=== PATIENT | male | born 1945 | race Caucasian/White ===

== ENCOUNTER 2017-07-06 16:41 | Inpatient (IN) | payer MEDICARE ==
[~2017-07-06 16:41] MED LIST: GADODIAMIDE PF 287 MG/ML 20 ML VIAL (for RAD MRI) IV PUSH ONE
[2017-07-06 16:42] VITALS: BP 122/78; PULSE 75; RESP 16; TEMP 97.8; O2SAT 100
--- NOTE | 2017-07-06 18:13 | RADRPT ---
EXAM DATE/TIME: 07/06/2017 17:57 [facility] COMPARISON: No previous studies available for comparison. INDICATIONS : Altered mental status. RADIATION DOSE: 40.12 CTDIvol (mGy) MEDICAL HISTORY : None SURGICAL HISTORY : None. ENCOUNTER: Initial ACUITY: 1 day PAIN SCALE: 0/10 LOCATION: Bilateral head TECHNIQUE: Multiple contiguous axial images were obtained of the head. Using automated exposure control and adj ustment of the mA and/or kV according to patient size, radiation dose was kept as low as reasonably a chievable to obtain optimal diagnostic quality images. DICOM format image data is available electro nically for review and comparison. FINDINGS: CEREBRUM: Mild diffuse cerebral volume loss. The ventricles are minimally more prominent than expected for degr ee of atrophy.. No evidence of midline shift, mass lesion, hemorrhage or acute infarction. No extra -axial fluid collections are seen. POSTERIOR FOSSA: The cerebellum and brainstem are intact. The 4th ventricle is midline. The cerebellopontine angle i s unremarkable. EXTRACRANIAL: The visualized portion of the orbits is intact. Mild mucoperiosteal thickening in the left maxillary sinus. SKULL: The calvaria is intact. No evidence of skull fracture. CONCLUSION: 1. Senescent changes with minimally prominent ventricles. Recommend clinical correlation for normal p ressure hydrocephalus. Ajay Gr MD on July 06, 2017 at 18:10 Board Certified Radiologist. This report was verified electronically.
[2017-07-06 18:32] LABS: AUTOMATED NEUTROPHIL # 3.1 TH/MM3 (1.8-7.7); BASOPHIL # 0.1 TH/MM3 (0-0.2); BASOPHIL % 0.9 % (0.0-2.0); EOSINOPHIL # 0.1 TH/MM3 (0-0.4); EOSINOPHIL % 1.4 % (0.0-4.0); HEMATOCRIT 37.5 % (39.0-51.0); HEMOGLOBIN 12.9 GM/DL (13.0-17.0); LYMPH % 31.1 % (9.0-44.0); LYMPHOCYTE # 1.7 TH/MM3 (1.0-4.8); MEAN CELL VOLUME 96.3 FL (80.0-100.0); MEAN CORPUSCULAR HGB CONC 34.3 % (32.0-36.0); MEAN PLATELET VOLUME 7.4 FL (7.0-11.0); MONO % 11.3 % (0.0-8.0); MONOCYTE # 0.6 TH/MM3 (0-0.9); NEUT % 55.3 % (16.0-70.0); PLATELET COUNT 195 TH/MM3 (150-450); RED CELL DISTRIBUTION WIDTH 14.6 % (11.6-17.2); WHITE BLOOD COUNT 5.6 TH/MM3 (4.0-11.0)
[2017-07-06 18:35] LABS: AMORPHOUS SEDIMENT, URINE RARE; BILIRUBIN, URINE NEG (NEG); BLOOD, URINE NEG (NEG); GLUCOSE,URINE NEG (NEG); HYALINE CAST, URINE 3 /lpf (RARE); KETONE, URINE TRACE mg/dL (NEG); MUCUS URINE FEW /lpf (OCC); NITRITE,URINE NEG (NEG); URINE COLOR YELLOW (YELLW/STRAW); URINE LEUKOCYTE ESTERASE NEG (NEG)
[2017-07-06 18:51] LABS: BICARBONATE 28.4 MEQ/L (21.0-32.0); CALCIUM 9.3 MG/DL (8.5-10.1); CREATININE 1.12 MG/DL (0.60-1.30)
[2017-07-06 19:26] VITALS: O2SAT 100
[2017-07-06 19:27] VITALS: BP 121/72; PULSE 68; RESP 16
--- NOTE | 2017-07-06 19:33 | PD ---
HPI Chief Complaint: Altered Mental Status Time Seen by Provider: 18:43 Travel History International Travel<30 days: No Contact w/Intl Traveler<30days: No Traveled to known affect area: No History of Present Illness HPI 72-year-old male presents to the ED for evaluation of worsening confusion, forgetfulness, shuffling gait, urinary incontinence. Patient has a neighbor at bedside he states that his speech was garbled when they attempted to talk on the phone today. She also states that she noticed increased swelling in his lower legs and that he's been having urinary difficulties, with urinary incontinence before arrival. On presentation the patient is pleasantly confused. He denies headache, dizziness, vision changes, chest pain, palpitations, shortness of breath, abdominal pain, nausea, vomiting, dysuria. He endorses chronic swelling in the lower extremities. He states that he buys his medications from [facility] and is unsure what he takes. He thinks he takes bupropion but is otherwise unsure. PFSH Past Medical History Medical other: Yes (tooth infection) Social History Alcohol Use: No Tobacco Use: No Allergies-Medications (Allergen,Severity, Reaction): Coded Allergies: No Known Allergies (Unverified , 07/06/17) Reported Meds & Prescriptions Reported Meds & Active Scripts Active Active Prescriptions or Reported Medications Unobtainable Review of Systems Except as stated in HPI: all other systems reviewed are Neg Physical Exam Narrative GENERAL: Well-nourished, well-developed pleasantly confused white male in no acute distress. PSYCHIATRIC: No delusional thought processes. No hallucinations. Calm, cooperative. SKIN: Focused skin assessment warm/dry. Venous stasis dermatitis bilateral lower extremities. HEAD: Normocephalic. Atraumatic. EYES: No scleral icterus. No injection or drainage. PERRLA. EOMI. NECK: Supple, trachea midline. No JVD or lymphadenopathy. CARDIOVASCULAR: Regular rate and rhythm without murmurs, gallops, or rubs. RESPIRATORY: Breath sounds clear and equal bilaterally. No accessory muscle use. GASTROINTESTINAL: Abdomen soft, non-tender, nondistended. Active bowel sounds. MUSCULOSKELETAL: No cyanosis, or edema. NEUROLOGICAL: Awake and alert. Mild resting tremor. Cranial nerves II through XII intact. Motor and sensory grossly within normal limits. Five out of 5 muscle strength in all muscle groups. Normal speech. BACK: Nontender without obvious deformity. No CVA tenderness. Data Data Last Documented VS Vital Signs Date Time Temp Pulse Resp B/P (MAP) Pulse Ox O2 Delivery O2 Flow Rate FiO2 07/06/17 19:27 68 16 121/72 (88) 07/06/17 19:26 100 Room Air 07/06/17 16:42 97.8 Orders Orders Complete Blood Count With Diff (07/06/17 16:52) Basic Metabolic Panel (Bmp) (07/06/17 16:52) Urinalysis - C+S If Indicated (07/06/17 16:52) Ct Brain W/O Iv Contrast(Rout) (07/06/17 ) Electrocardiogram (07/06/17 ) Troponin I (07/06/17 19:08) Iv Access Insert/Monitor (07/06/17 19:08) Ecg Monitoring (07/06/17 19:08) Oximetry (07/06/17 19:08) B-Type Natriuretic Peptide (07/06/17 19:08) Admit Order (Ed Use Only) (07/06/17 21:08) Labs Laboratory Tests Test 07/06/17 17:17 07/06/17 19:20 White Blood Count 5.6 TH/MM3 Red Blood Count 3.90 MIL/MM3 Hemoglobin 12.9 GM/DL Hematocrit 37.5 % Mean Corpuscular Volume 96.3 FL Mean Corpuscular Hemoglobin 33.0 PG Mean Corpuscular Hemoglobin Concent 34.3 % Red Cell Distribution Width 14.6 % Platelet Count 195 TH/MM3 Mean Platelet Volume 7.4 FL Neutrophils (%) (Auto) 55.3 % Lymphocytes (%) (Auto) 31.1 % Monocytes (%) (Auto) 11.3 % Eosinophils (%) (Auto) 1.4 % Basophils (%) (Auto) 0.9 % Neutrophils # (Auto) 3.1 TH/MM3 Lymphocytes # (Auto) 1.7 TH/MM3 Monocytes # (Auto) 0.6 TH/MM3 Eosinophils # (Auto) 0.1 TH/MM3 Basophils # (Auto) 0.1 TH/MM3 CBC Comment DIFF FINAL Differential Comment Urine Color YELLOW Urine Turbidity CLEAR Urine pH 6.0 Urine Specific [place] 1.018 Urine Protein NEG mg/dL Urine Glucose (UA) NEG mg/dL Urine Ketones TRACE mg/dL Urine Occult Blood NEG Urine Nitrite NEG Urine Bilirubin NEG Urine Urobilinogen LESS THAN 2.0 MG/DL Urine Leukocyte Esterase NEG Urine RBC 1 /hpf Urine WBC LESS THAN 1 /hpf Urine Amorphous Sediment RARE Urine Hyaline Casts 3 /lpf Urine Mucus FEW /lpf Microscopic Urinalysis Comment CULT NOT INDICATED Blood Urea Nitrogen 34 MG/DL Creatinine 1.12 MG/DL Random Glucose 77 MG/DL Calcium Level 9.3 MG/DL Sodium Level 141 MEQ/L Potassium Level 3.8 MEQ/L Chloride Level 106 MEQ/L Carbon Dioxide Level 28.4 MEQ/L Anion Gap 7 MEQ/L Estimat Glomerular Filtration Rate 64 ML/MIN B-Type Natriuretic Peptide 32 PG/ML Troponin I LESS THAN 0.02 NG/ML MDM Medical Decision Making Medical Screen Exam Complete: Yes Emergency Medical Condition: Yes Differential Diagnosis dementia versus UTI versus CVA versus Parkinsons versus other Narrative Course 72-year-old male presents to the ED for evaluation of worsening confusion, forgetfulness, shuffling gait, urinary incontinence. Patient has a neighbor at bedside he states that his speech was garbled when they attempted to talk on the phone today. She also states that she noticed increased swelling in his lower legs. Vitals reviewed. On presentation the patient is pleasantly confused. No focal neuro deficit, resting tremor noted. Patient is very hesitant in his gait. He states that he buys his medications from [facility] and is unsure what he takes. EKG rate 67, sinus rhythm. WV interval 161, QRS 94, QTC 421. Normal axis. No acute ST changes. Reviewed by Dr. Alonzo. Troponin negative 1. BNP 32 CBC: 10 CBC 5.6, hemoglobin 12.9. CMP: BUN 34, creatinine 1.12, GFR 64. UA: No culture indicated. CT head: Senescent changes, minimally prominent ventricles. Recommend clinical correlation for normal pressure hydrocephalus per radiology read. Discussed the results of the workup with the patient and his friend at bedside. They are agreeable to admission. I discussed the patient with Dr. Cade who agrees to accept the patient to the medicine service to rule out normal pressure hydrocephalus. Neuro consult placed. Please see medicine notes for disposition. Scripts Unable to Obtain Active Prescriptions or Reported Meds Munira Prater Jul 06, 2017 19:33
[2017-07-06] MEDS ORDERED: SODIUM CHLORIDE 0.9% FLUSH 10 ML FLUSH IV FLUSH PRN (22:00)
[2017-07-06 22:39] VITALS: BP 131/72; PULSE 67; RESP 16; TEMP 97.3; O2SAT 100
--- NOTE | 2017-07-07 00:43 | HHI.HP ---
[facility] Ahmet Doe MD Admission Diagnosis neuro symptoms r/o normal pressur hydrocephalus Diagnoses: Travel History International Travel<30 Days: No Contact w/Intl Traveler <30 Da: No Traveled to Known Affected Are: No History of Present Illness 72-year-old gentleman with unknown past medical history presents to the emergency department for evaluation of ulcerative mental status and more frequent falls. The patient's neighbor reports that patient has been suffering from worsening confusion and forgetfulness. She also states he has a shuffling gait with urinary incontinence. The neighbor reports that the patient has had garbled speech today. During her interview, the patient does not know why he is in the emergency department. He is pleasantly confused. He knows he is in the state [facility] but does not know the city. He does not know the date or year. He does not know what medical problems he has but he can tell me that he takes multiple medications. The patient does report that he fell twice last night. Patient denies headache. He denies fever/chills. No chest pain or shortness of breath. No nausea/vomiting/diarrhea. Review of Systems ROS Limitations: Clinical Condition Except as stated in HPI: all other systems reviewed are Neg Past Family Social History Past Medical History Unable to obtain Past Surgical History Unable to obtain Reported Medications Reported Meds & Active Scripts Active Active Prescriptions or Reported Medications Unobtainable Allergies: Coded Allergies: No Known Allergies (Unverified , 07/06/17) Family History Unable to obtain Social History Patient denies alcohol, tobacco and illicit drugs Physical Exam Vital Signs Vital Signs Date Time Temp Pulse Resp B/P (MAP) Pulse Ox O2 Delivery O2 Flow Rate FiO2 07/06/17 22:39 97.3 67 16 131/72 (91) 100 07/06/17 22:22 07/06/17 19:27 68 16 121/72 (88) 07/06/17 19:26 100 Room Air 07/06/17 19:08 16 Room Air 07/06/17 16:42 97.8 75 16 122/78 (93) 100 Physical Exam GENERAL: male lying in bed SKIN: No rashes, ecchymoses or lesions. Cool and dry. HEAD: Atraumatic. Normocephalic. No temporal or scalp tenderness. EYES: Pupils equal round and reactive. Extraocular motions intact. No scleral icterus. No injection or drainage. ENT: Nose without bleeding, purulent drainage or septal hematoma. Throat without erythema, tonsillar hypertrophy or exudate. Uvula midline. Airway patent. NECK: Trachea midline. No JVD or lymphadenopathy. Supple, nontender, no meningeal signs. CARDIOVASCULAR: Regular rate and rhythm without murmurs, gallops, or rubs. RESPIRATORY: Clear to auscultation. Breath sounds equal bilaterally. No wheezes , rales, or rhonchi. GASTROINTESTINAL: Abdomen soft, non-tender, nondistended. No hepato-splenomegaly , or palpable masses. No guarding. MUSCULOSKELETAL: Extremities without clubbing, cyanosis, or edema. No joint tenderness, effusion, or edema noted. No calf tenderness. Negative Homans sign bilaterally. NEUROLOGICAL: Awake and alert. Cranial nerves II through XII intact. Motor and sensory grossly within normal limits. Five out of 5 muscle strength in all muscle groups. Normal speech. Confused. Oriented only to state. He does not know city, date, time. Laboratory Laboratory Tests Test 07/06/17 17:17 07/06/17 19:20 White Blood Count 5.6 Red Blood Count 3.90 Hemoglobin 12.9 Hematocrit 37.5 Mean Corpuscular Volume 96.3 Mean Corpuscular Hemoglobin 33.0 Mean Corpuscular Hemoglobin Concent 34.3 Red Cell Distribution Width 14.6 Platelet Count 195 Mean Platelet Volume 7.4 Neutrophils (%) (Auto) 55.3 Lymphocytes (%) (Auto) 31.1 Monocytes (%) (Auto) 11.3 Eosinophils (%) (Auto) 1.4 Basophils (%) (Auto) 0.9 Neutrophils # (Auto) 3.1 Lymphocytes # (Auto) 1.7 Monocytes # (Auto) 0.6 Eosinophils # (Auto) 0.1 Basophils # (Auto) 0.1 CBC Comment DIFF FINAL Differential Comment Urine Color YELLOW Urine Turbidity CLEAR Urine pH 6.0 Urine Specific [place] 1.018 Urine Protein NEG Urine Glucose (UA) NEG Urine Ketones TRACE Urine Occult Blood NEG Urine Nitrite NEG Urine Bilirubin NEG Urine Urobilinogen LESS THAN 2.0 Urine Leukocyte Esterase NEG Urine RBC 1 Urine WBC LESS THAN 1 Urine Amorphous Sediment RARE Urine Hyaline Casts 3 Urine Mucus FEW Microscopic Urinalysis Comment CULT NOT INDICATED Blood Urea Nitrogen 34 Creatinine 1.12 Random Glucose 77 Calcium Level 9.3 Sodium Level 141 Potassium Level 3.8 Chloride Level 106 Carbon Dioxide Level 28.4 Anion Gap 7 Estimat Glomerular Filtration Rate 64 B-Type Natriuretic Peptide 32 Ethyl Alcohol Level LESS THAN 3 Troponin I LESS THAN 0.02 Result Diagram: 07/06/17171607/06/171716 Caprini VTE Risk Assessment Caprini VTE Risk Assessment: Mod/High Risk (score >= 2) Caprini Risk Assessment Model Point Value = 1 Point Value = 2 Point Value = 3 Point Value = 5 Age 41-60 Minor surgery BMI > 25 kg/m2 Swollen legs Varicose veins or History of unexplained or recurrent spontaneous Oral contraceptives or hormone replacement Sepsis (< 1 month) Serious lung disease, including pneumonia (< 1 month) Abnormal pulmonary function Acute myocardial infarction Congestive heart failure (< 1 month) History of inflammatory bowel disease Medical patient at bed rest Age 61-74 Arthroscopic surgery Major open surgery (> 45 min) Laparoscopic surgery (> 45 min) Malignancy Confined to bed (> 72 hours) Immobilizing plaster cast Central venous access Age >= 75 History of VTE Family history of VTE Factor V Leiden Prothrombin [id number] Lupus anticoagulant Anticardiolipin antibodies Elevated serum homocysteine Heparin-induced thrombocytopenia Other congenital or acquired thrombophilia Stroke (< 1 month) Elective arthroplasty Hip, pelvis, or leg fracture Acute spinal cord injury (< 1 month) Prophylaxis Regimen Total Risk Factor Score Risk Level Prophylaxis Regimen 0-1 Low Early ambulation 2 Moderate Order ONE of the following: *Sequential Compression Device (SCD) *Heparin 5000 units SQ BID 3-4 Higher Order ONE of the following medications: *Heparin 5000 units SQ TID *Enoxaparin/Lovenox 40 mg SQ daily (WT < 150 kg, CrCl > 30 mL/min) *Enoxaparin/Lovenox 30 mg SQ daily (WT < 150 kg, CrCl > 10-29 mL/min) *Enoxaparin/Lovenox 30 mg SQ BID (WT < 150 kg, CrCl > 30 mL/min) AND/OR *Sequential Compression Device (SCD) 5 or more Highest Order ONE of the following medications: *Heparin 5000 units SQ TID (Preferred with Epidurals) *Enoxaparin/Lovenox 40 mg SQ daily (WT < 150 kg, CrCl > 30 mL/min) *Enoxaparin/Lovenox 30 mg SQ daily (WT < 150 kg, CrCl > 10-29 mL/min) *Enoxaparin/Lovenox 30 mg SQ BID (WT < 150 kg, CrCl > 30 mL/min) AND *Sequential Compression Device (SCD) Assessment and Plan Assessment and Plan Assessment/plan: 1. Altered mental status/concern for hydrocephalus Patient with urinary incontinence, shuffling gait, frequent falls and confusion CT of the head significant for minimally prominent ventricles Concern for normal pressure hydrocephalus Neurology consulted, appreciate assistance 2. Multiple medical comorbidities Records review did not elicit information Patient's medical history will need to be obtained FEN Nothing by mouth Electrolytes: Monitor and replete when necessary NS at 84 cc/hour Halting pharmacologic anticoagulation for possible procedure Amelie Cade MD Jul 07, 2017 00:43
[2017-07-07] MEDS: SODIUM CHLOR 0.9% 1000 ML INJ 1,000 ML IV SCH ×3 (01:19→16:01)
[2017-07-07 06:38] VITALS: BP 128/61; PULSE 63; RESP 18; TEMP 98; O2SAT 100
[2017-07-07 07:48] LABS: AUTOMATED NEUTROPHIL # 2.4 TH/MM3 (1.8-7.7); BASOPHIL % 0.9 % (0.0-2.0); EOSINOPHIL # 0.1 TH/MM3 (0-0.4); EOSINOPHIL % 1.5 % (0.0-4.0); HEMATOCRIT 35.9 % (39.0-51.0); HEMOGLOBIN 12.3 GM/DL (13.0-17.0); LYMPH % 37.6 % (9.0-44.0); LYMPHOCYTE # 1.8 TH/MM3 (1.0-4.8); MEAN CORPUSCULAR HEMOGLOBIN 32.9 PG (27.0-34.0); MEAN CORPUSCULAR HGB CONC 34.2 % (32.0-36.0); MEAN PLATELET VOLUME 7.4 FL (7.0-11.0); MONO % 8.6 % (0.0-8.0); MONOCYTE # 0.4 TH/MM3 (0-0.9); NEUT % 51.4 % (16.0-70.0); PLATELET COUNT 174 TH/MM3 (150-450); RED BLOOD COUNT 3.75 MIL/MM3 (4.50-5.90); RED CELL DISTRIBUTION WIDTH 14.3 % (11.6-17.2); WHITE BLOOD COUNT 4.7 TH/MM3 (4.0-11.0)
[2017-07-07 08:25] LABS: ALBUMIN 3.3 GM/DL (3.4-5.0); ALKALINE PHOSPHATASE 68 U/L (45-117); ALT (GPT) 17 U/L (12-78); AST (GOT) 22 U/L (15-37); BICARBONATE 29.8 MEQ/L (21.0-32.0); BLOOD UREA NITROGEN 31 MG/DL (7-18); CALCIUM 8.5 MG/DL (8.5-10.1); CHLORIDE 108 MEQ/L (98-107); CREATININE 0.96 MG/DL (0.60-1.30); GLOMERULAR FILTRATION RATE 77 ML/MIN (>89); GLUCOSE,RANDOM 77 MG/DL (74-106); SODIUM (NA) 142 MEQ/L (136-145); TOTAL BILIRUBIN ADULT 0.8 MG/DL (0.2-1.0); TOTAL PROTEIN 6.4 GM/DL (6.4-8.2)
[2017-07-07 08:59] VITALS: BP 105/60; PULSE 64; RESP 18; TEMP 97.6; O2SAT 99
[2017-07-07] MEDS: SODIUM CHLORIDE 0.9% FLUSH 10 ML FLUSH IV FLUSH SCH ×2 (09:00→21:00)
[2017-07-07] MEDS ORDERED: AMLO2.5T PO (10:03)
[2017-07-07] MEDS ORDERED: SERO200T PO (10:03)
--- NOTE | 2017-07-07 11:12 | PD.CONS ---
History of Present Illness Service Neurology Consult Requested By Medicine Reason for Consult R/O [facility] Primary Care Physician Ahmet Doe MD History of Present Illness 72 yo male admitted to the hospital for worsening gait ataxia, confusion, and urinary incontinence. Pt is pleasantly confused and cannot give meaningful history. He denies any headache or neck stiffness currently. Knows that he gets medicine from [facility] but cannot recall what meds or for what reason. According to the chart the patient lives alone and friends have noted a decline in balance and mobility, cognitive impairment, and urinary incontinence. CT head suggestive of minimally prominent ventricles, otherwise NAICP. After my initial evaluation, I was called back to the patient's room to speak with the patient's neighbor. She does note that he has had some mild but progressive cognitive decline over the past 6 months as well as mild and progressive gait ataxia. She states that yesterday he was notably more confused and unable to walk, therefore he was brought into the hospital for evaluation. She is uncertain of his full medical history, though she notes that he has a broken tooth which was scheduled to be removed soon. He was started on amoxicillin and a narcotic pain medication. She states that he has not been taking much of the pain medication. She noted upon seeing him yesterday that the patient had lost control of his bladder before he was brought into the hospital. Review of Systems Constitutional: Negative except HPI Eye: Negative Except HPI ENMT: Negative except HPI Respiratory: Negative except HPI Cardiovascular: Negative except HPI Gastrointestinal: Negative except HPI Jonathan/Lymph: Negative except HPI Musculoskeletal: Negative except HPI Neurologic: Negative except HPI Psychiatric: Negative except HPI All other ROS: ROS reviewed as documented in chart Past Family Social History Allergies: Coded Allergies: No Known Allergies (Unverified , 07/06/17) Past Medical History Unobtainable due to confused patient Past Surgical History Unobtainable due to confused patient Reported Medications Unobtainable due to confused patient Active Ordered Medications Current Medications Medications (Trade) Dose Ordered Sig/Crystal Route Start Time Stop Time Status Last Admin (NS Flush) 2 ml UNSCH PRN IV FLUSH 07/06/17 22:00 (NS Flush) 2 ml BID IV FLUSH 07/07/17 09:00 Sodium Chloride 1,000 ml @ 84 mls/hr [id number] IV 07/07/17 00:45 07/07/17 01:22 Family History Unobtainable due to confused patient Social History Unobtainable due to confused patient, does note that he lives alone in [place] Exam I&O / VS 07/07/17 07/07/17 07/08/17 14:59 22:59 06:59 Output Total 500 ml Balance -500 ml Output Urine Total 500 ml Vital Signs Date Time Temp Pulse Resp B/P (MAP) Pulse Ox O2 Delivery O2 Flow Rate FiO2 07/07/17 08:59 97.6 64 18 105/60 (75) 99 07/07/17 06:38 98.0 63 18 128/61 (83) 100 07/06/17 22:39 97.3 67 16 131/72 (91) 100 07/06/17 22:22 07/06/17 19:27 68 16 121/72 (88) 07/06/17 19:26 100 Room Air 07/06/17 19:08 16 Room Air 07/06/17 16:42 97.8 75 16 122/78 (93) 100 General: No acute distress Eye: PERRL, EOMI Respiratory: Lungs CTA, Non-labored respirations, Symmetrical expansion Cardiology: Normal rate Neurologic: Alert, Normal sensory, CN II-XII intact Psychiatric: Cooperative Exam Comments A&O x 1, not oriented to date or location, speech fluent, pleasantly confused, does not have good insight, strength grossly full and equal throughout, sensory intact to pin throughout, positive rhomberg, no tremor, no cogwheeling, mild finger nose dymetria, cannot perform heel to coleman, gait deferred at this time for safety but walked with PT using walker recently today, mildly increased reflexes at B/L kj, plantar flexor Review/Management Diagnosis/Plan: (1) Encephalopathy ICD Codes: G93.40 - Encephalopathy, unspecified Plan: CT brain with mild ventriculomegaly, possible NPH MRI brain EEG Labs (2) Ataxic gait ICD Codes: R26.0 - Ataxic gait Plan: Fall precautions PT already evaluated Angiograms for VBI Consider diagnostic/therapeutic LP Kurt Thompson Jul 07, 2017 11:12
[2017-07-07] MEDS ORDERED: AMOX500C PO (12:01)
[2017-07-07] MEDS ORDERED: BUPR1TAB70 PO (12:01)
[2017-07-07] MEDS ORDERED: QUET1TAB8 PO (12:01)
[2017-07-07] MEDS ORDERED: BUPR150T12 PO (12:01)
[2017-07-07] MEDS ORDERED: HYDR-3580 PO (12:01)
[2017-07-07 12:16] VITALS: BP 111/60; PULSE 62; RESP 18; TEMP 97.9; O2SAT 100
--- NOTE | 2017-07-07 14:43 | RADRPT ---
EXAM DATE/TIME: 07/07/2017 14:12 [facility] COMPARISON: No previous studies available for comparison. INDICATIONS : MRI clearance. MEDICAL HISTORY : None. SURGICAL HISTORY : None. ENCOUNTER: Initial ACUITY: 1 day PAIN SCORE: 0/10 LOCATION: Bilateral chest FINDINGS: The cardiac silhouette is enlarged in transverse diameter. The lungs are free of acute parenchymal op acity. No effusions are identified. There is mild scoliotic deformity convex to the right. No foreign body is identified. CONCLUSION: Cardiomegaly. No acute pulmonary disease. No contraindication to MRI Kareem Viramontes MD on July 07, 2017 at 14:41 Board Certified Radiologist. This report was verified electronically.
--- NOTE | 2017-07-07 15:51 | RADRPT ---
EXAM DATE/TIME: 07/07/2017 15:22 [facility] COMPARISON: No previous studies available for comparison. INDICATIONS : Vertebrobasilar insufficiency. MEDICAL HISTORY : Hypertension. SURGICAL HISTORY : Unknown. ENCOUNTER: Subsequent ACUITY: 1 day PAIN SCORE: 0/10 LOCATION: cranial Please note a normal MRA of the brain does not entirely exclude the possibility of a small aneurysm, nor the possibility of distal intracranial vessel disease. TECHNIQUE: 3D time of flight MRA was performed. Source images, multiplanar STS MIP, and 3D volume MIP reconstru ctions were reviewed. FINDINGS: Anterior circulation: Distal intracranial internal carotid arteries are patent with flow extending to the middle and anteri or cerebral arteries. Small caliber right A1 segment There is no evidence for aneurysm, vessel trunca tion or stenosis, and no evidence for vascular malformation. Posterior circulation: There is approximately 1.5 cm length mild to moderate diffuse circumferential narrowing of the distal right vertebral artery at the basilar junction. There is no evidence for aneurysm, vessel truncation or stenosis, and no evidence for vascular malformation. CONCLUSION: 1. 1.5 cm length mild to moderate diffuse circumferential narrowing of the distal right vertebral art leida at the basilar junction. Otherwise, widely patent distal left and basilar arteries. Doubt that th e degree of stenosis is sufficient to result in clinical vertebrobasilar insufficiency unless there i s a hemodynamically significant proximal left vertebral artery stenosis. 2. Hypoplastic right A1 segment. Ajay Gr MD on July 07, 2017 at 15:45 Board Certified Radiologist. This report was verified electronically.
--- NOTE | 2017-07-07 16:04 | RADRPT ---
EXAM DATE/TIME: 07/07/2017 15:22 [facility] COMPARISON: CT BRAIN W/O CONTRAST, July 06, 2017, 17:57. INDICATIONS : Confusion. CONTRAST: 20 cc Omniscan (gadodiamide) IV MEDICAL HISTORY : Hypertension. SURGICAL HISTORY : Unknown. ENCOUNTER: Subsequent ACUITY: 1 day PAIN SCORE: 0/10 LOCATION: cranial TECHNIQUE: Multiplanar, multisequence MRI of the brain was performed both prior to and following the administrat ion of paramagnetic contrast. FINDINGS: CEREBRUM: The ventricles, sulci, and basal cisterns are prominent, characteristic of moderate severity Central and cortical atrophy. No evidence of midline shift, mass lesion, hemorrhage or acute infarction. No extraaxial fluid collections are seen. The pituitary gland and suprasellar cistern are normal in co nfiguration. WHITE MATTER: There some mild scattered areas of T2 prolongation in the supratentorial white matter, nonspecific, b ut probably ischemic. No confluent T2 elongation in the periventricular white matter. POSTERIOR FOSSA: The cerebellum and brainstem are intact. Moderate atrophy. The 4th ventricle is midline. The cerebe llopontine angle is unremarkable. The cerebellar tonsils are normal in position. DIFFUSION IMAGING: No focal areas of restricted diffusion are seen. No evidence of acute infarction. EXTRACRANIAL: The visualized portions of the orbits and paranasal sinuses are unremarkable. POST-CONTRAST: No abnormal areas of parenchymal or dural enhancement. No evidence of blood-brain barrier breakdown. CONCLUSION: Moderate central and cortical atrophy of the supra-and infratentorial brain. No abnormal areas of en hancement. Chester Lilly MD on July 07, 2017 at 16:00 Board Certified Radiologist. This report was verified electronically.
--- NOTE | 2017-07-07 16:08 | RADRPT ---
EXAM DATE/TIME: 07/07/2017 15:22 [facility] COMPARISON: No previous studies available for comparison. INDICATIONS : Vertebrobasilar insufficiency. CONTRAST: 20 cc Omniscan (gadodiamide) IV MEDICAL HISTORY : Hypertension. SURGICAL HISTORY : Unknown. ENCOUNTER: Subsequent ACUITY: 1 day PAIN SCORE: 0/10 LOCATION: neck Percent stenosis is calculated using the diameter of the stenotic region over the diameter of the nor mal distal internal carotid artery. TECHNIQUE: Bolus infused MRA of the extracranial circulation was performed using a neurovascular coil. Post pro cessing was performed including rotating subvolume maximum intensity projections of each carotid emmy ry, rotating full volume maximum intensity projections of both carotid arteries, sagittal and coronal sliding thin slab reformations of each carotid artery, and left oblique sliding thin slab reformatio n through the aortic arch to include the origin of the arch branch vessels. FINDINGS: AORTIC ARCH: There is a three vessel origin of the great vessels from the aorta. No evidence of ostial narrowing. RIGHT CAROTID: The common carotid artery is intact. The carotid bulb has a normal configuration without ulceration or narrowing. The internal carotid artery lumen is smooth without stenosis. The external carotid ar augustus is intact. LEFT CAROTID: The common carotid artery is intact. The carotid bulb has a normal configuration without ulceration or narrowing. The internal carotid artery lumen is smooth without stenosis. The external carotid ar augustus is intact. VERTEBRALS: The vertebral arteries have a symmetric diameter. There is mild circumferential stenosis of the dista l right vertebral artery at the vertebrobasilar junction which appears less prominent than on the hea d MRA exam. No additional focal stenosis. 2 arteries patent throughout. No stenotic lesions are seen. CONCLUSION: 1. Mild circumferential stenosis of the distal right vertebral artery at the vertebrobasilar junction . This appears less prominent than on head MRA examination. Widely patent left vertebral artery. Over all, findings should not result in clinically significant vertebrobasilar insufficiency. 2. No significant carotid flow-limiting stenosis. Ajay Gr MD on July 07, 2017 at 16:01 Board Certified Radiologist. This report was verified electronically.
[2017-07-07 16:17] LABS: C-REACTIVE PROTEIN LESS THAN 0.29 MG/DL (0.00-0.30)
--- NOTE | 2017-07-07 16:23 | HHI.PR ---
Subjective Remarks Follow-up altered mental status, gait abnormalities. The patient just returned from MRI. States that he feels okay. Denies chest pain or dyspnea. No headache or vision changes. He apparently has been having increased confusion in recent months, worsening over the past few days. He also has had gait instability, described as shuffling. Objective Vitals Vital Signs Date Time Temp Pulse Resp B/P (MAP) Pulse Ox O2 Delivery O2 Flow Rate FiO2 07/07/17 12:16 97.9 62 18 111/60 (77) 100 07/07/17 08:59 97.6 64 18 105/60 (75) 99 07/07/17 06:38 98.0 63 18 128/61 (83) 100 07/06/17 22:39 97.3 67 16 131/72 (91) 100 07/06/17 22:22 07/06/17 19:27 68 16 121/72 (88) 07/06/17 19:26 100 Room Air 07/06/17 19:08 16 Room Air 07/06/17 16:42 97.8 75 16 122/78 (93) 100 I/O 07/06/17 07/06/17 07/06/17 07/07/17 07/07/17 07/07/17 07:00 15:00 23:00 07:00 15:00 23:00 Output Total 175 ml 500 ml Balance -175 ml -500 ml Output Urine Total 175 ml 500 ml Result Diagram: 07/07/17 0635 07/07/17 0635 Imaging Last Impressions Neck Magnetic Resonance Angiography 07/07/17 0000 Signed Impressions: Service Date/Time: Friday, July 07, 2017 15:22 - CONCLUSION: 1. Mild circumferential stenosis of the distal right vertebral artery at the vertebrobasilar junction. This appears less prominent than on head MRA examination. Widely patent left vertebral artery. Overall, findings should not result in clinically significant vertebrobasilar insufficiency. 2. No significant carotid flow-limiting stenosis. Ajay Gr MD Head Magnetic Resonance Angiography 07/07/17 0000 Signed Impressions: Service Date/Time: Friday, July 07, 2017 15:22 - CONCLUSION: 1. 1.5 cm length mild to moderate diffuse circumferential narrowing of the distal right vertebral artery at the basilar junction. Otherwise, widely patent distal left and basilar arteries. Doubt that the degree of stenosis is sufficient to result in clinical vertebrobasilar insufficiency unless there is a hemodynamically significant proximal left vertebral artery stenosis. 2. Hypoplastic right A1 segment. Ajay Gr MD Chest X-Ray 07/07/17 0000 Signed Impressions: Service Date/Time: Friday, July 07, 2017 14:12 - CONCLUSION: Cardiomegaly. No acute pulmonary disease. No contraindication to MRI Kareem Viramontes MD Brain MRI 07/07/17 0000 Signed Impressions: Service Date/Time: Friday, July 07, 2017 15:22 - CONCLUSION: Moderate central and cortical atrophy of the supra-and infratentorial brain. No abnormal areas of enhancement. Chester Lilly MD Head CT 07/06/17 0000 Signed Impressions: Service Date/Time: Thursday, July 06, 2017 17:57 - CONCLUSION: 1. Senescent changes with minimally prominent ventricles. Recommend clinical correlation for normal pressure hydrocephalus. Ajay Gr MD Objective Remarks General: Elderly male in no acute distress. Heart: Regular rate and rhythm. No murmur. Lungs: Clear to auscultation bilaterally. No wheezes, rales, or rhonchi. Breathing is nonlabored. Abdomen: Soft, nontender, nondistended. Extremities: No lower extremity edema. Psych: Alert, somewhat confused. Answers most questions appropriately. Procedures None Urinary Catheter: No Vascular Central Line Catheter: No A/P Assessment and Plan 1. Altered mental status, possible normal pressure hydrocephalus: Appreciate neurology recommendations. MRI/MRA noted. Continue PT. 2. Hypertension: Continue amlodipine. 3. Anxiety: Continue home medications. 4. DVT prophylaxis: Avoid chemical prophylaxis in anticipation of possible lumbar puncture. Discharge Planning Pending neurologic workup. Shane Rose MD Jul 07, 2017 16:23
[2017-07-07 16:24] VITALS: BP 135/72; PULSE 66; RESP 18; TEMP 97.7; O2SAT 100
[2017-07-07] MEDS ORDERED: PILL SPLITTER OTHER PRN (17:45)
--- NOTE | 2017-07-07 18:21 | EKG ---
Date Performed: 07/06/2017 Time Performed: 19:22:53 PTAGE: 72 years EKG: Sinus rhythm NONSPECIFIC T-WAVE ABNORMALITY BORDERLINE ECG NO PREVIOUS TRACING DOCTOR: Kasie Higginbotham Interpretating Date/Time 07/07/2017 18:19:27
[2017-07-07 20:35] VITALS: BP 148/91; PULSE 92; RESP 16; TEMP 98.4; O2SAT 98
[2017-07-07] MEDS: AMOXICILLIN (TRIHYDRATE) 500 MG CAP PO SCH (21:34)
[2017-07-07] MEDS: QUEtiapine FUMARATE 100 MG TAB PO SCH (21:34)
[2017-07-07] MEDS: buPROPion HCL 100 MG SUSTAINED RELEASE TAB PO SCH (21:34)
[2017-07-08] MEDS: SODIUM CHLOR 0.9% 1000 ML INJ 1,000 ML IV SCH ×2 (00:51→12:19)
[2017-07-08 05:27] VITALS: BP 109/56; PULSE 63; RESP 16; TEMP 97.8; O2SAT 96
[2017-07-08] MEDS: AMOXICILLIN (TRIHYDRATE) 500 MG CAP PO SCH ×3 (05:35→20:52)
--- NOTE | 2017-07-08 07:01 | MG ---
cc: SANDRA STANLEY M.D. Lab No: 18-____ Date: 07/07/2017 Age: 72 Sex: M Race: ___ HISTORY An EEG on was obtained on this 72-year-old patient being evaluated for possible seizures, confusion. DESCRIPTION This EEG study shows low amplitude beta activity along with a lot of artifact. There are some theta rhythms and there is a lack of any more obvious alpha activity. The patient is then asleep and there are more theta and delta rhythms bilaterally. There is some right foot twitching without any EEG change. Photic stimulation was unremarkable. INTERPRETATION Abnormal EEG because of generalized slowing and attenuation suggesting a [id number] diffuse disturbance of cerebral function. No epileptiform features are present. MD HOWARD Smart/DJL /6:28 AM /6:53 AM
[2017-07-08 08:27] VITALS: BP 135/71; PULSE 72; RESP 18; TEMP 97.5; O2SAT 100
[2017-07-08] MEDS: amLODIPine BESYLATE 5 MG TAB PO SCH (08:40)
[2017-07-08] MEDS: SODIUM CHLORIDE 0.9% FLUSH 10 ML FLUSH IV FLUSH SCH ×2 (08:40→20:52)
[2017-07-08] MEDS: QUEtiapine FUMARATE 100 MG TAB PO SCH ×2 (08:41→20:52)
[2017-07-08] MEDS: buPROPion HCL 100 MG SUSTAINED RELEASE TAB PO SCH ×2 (08:42→20:52)
--- NOTE | 2017-07-08 09:30 | HHI.PR ---
Review/Management Diagnosis/Plan: (1) Encephalopathy ICD Codes: G93.40 - Encephalopathy, unspecified Plan: may have underlying emerging dementia MRI brain- atrophy, mild ventriculomegaly EEG- slowing ? on antipsychotic/antidepressant recs check csf p.t. (2) Ataxic gait ICD Codes: R26.0 - Ataxic gait Plan: Fall precautions Subjective Subjective Comments No acute events reported No headache No chest pain No dyspnea Active Medications Current Medications Medications (Trade) Dose Ordered Sig/Crystal Route Start Time Stop Time Status Last Admin (NS Flush) 2 ml UNSCH PRN IV FLUSH 07/06/17 22:00 (NS Flush) 2 ml BID IV FLUSH 07/07/17 09:00 Sodium Chloride 1,000 ml @ 84 mls/hr [id number] IV 07/07/17 00:45 07/08/17 00:51 (Norvasc) 2.5 mg DAILY PO 07/08/17 09:00 07/08/17 08:40 (Trimox) 500 mg Q8HR PO 07/07/17 22:00 07/08/17 05:35 (Wellbutrin Sr 12 Hr) 100 mg Q12HR PO 07/07/17 21:00 07/08/17 08:42 (SEROquel) 100 mg BID PO 07/07/17 21:00 07/08/17 08:41 (Pill Splitter) 1 ea UNSCH PRN OTHER 07/07/17 17:45 Allergies Allergies Coded Allergies No Known Allergies (Unverified07/06/17) Review of Systems Constitutional: Negative except HPI Eye: Negative Except HPI ENMT: Negative except HPI Respiratory: Negative except HPI Cardiovascular: Negative except HPI Gastrointestinal: Negative except HPI Jonathan/Lymph: Negative except HPI Musculoskeletal: Negative except HPI Neurologic: Negative except HPI Psychiatric: Negative except HPI All other ROS: ROS reviewed as documented in chart Exam I&O / VS Vital Signs Date Time Temp Pulse Resp B/P (MAP) Pulse Ox O2 Delivery O2 Flow Rate FiO2 07/08/17 08:27 97.5 72 18 135/71 (92) 100 07/08/17 05:27 97.8 63 16 109/56 (73) 96 07/07/17 20:35 98.4 92 16 148/91 (110) 98 07/07/17 16:24 97.7 66 18 135/72 (93) 100 07/07/17 12:16 97.9 62 18 111/60 (77) 100 General: No acute distress Eye: PERRL, EOMI Respiratory: Lungs CTA, Non-labored respirations, Symmetrical expansion Cardiology: Normal rate Neurologic: Alert, Normal sensory, No focal defects, CN II-XII intact, Normal DTR's Psychiatric: Cooperative, Appropriate mood & affect Exam Comments 2-3, not to exact date, follows, calm, pleasant, eomi, face sym, wilson to gravity Objective Micro and Labs Laboratory Tests Test 07/08/17 07:30 Sreekanth Mcdowell MD Jul 08, 2017 09:30
[2017-07-08 12:12] VITALS: BP 110/60; PULSE 63; RESP 18; TEMP 97.2; O2SAT 99
[2017-07-08] MEDS: THIAMINE HCL 200 MG/2 ML VIAL IM SCH (12:19)
[2017-07-08 12:37] LABS: INTERNATIONAL NORMALIZED RATIO 1.2 RATIO; PROTHROMBIN TIME - PATIENT 11.7 SEC (9.8-11.6)
--- NOTE | 2017-07-08 13:50 | HHI.PR ---
Subjective Remarks Follow up confusion, abnormal gait. Patient has no complaints at this time. Denies chest pain, dyspnea. Objective Vitals Vital Signs Date Time Temp Pulse Resp B/P (MAP) Pulse Ox O2 Delivery O2 Flow Rate FiO2 07/08/17 12:12 97.2 63 18 110/60 (77) 99 07/08/17 08:27 97.5 72 18 135/71 (92) 100 07/08/17 05:27 97.8 63 16 109/56 (73) 96 07/07/17 20:35 98.4 92 16 148/91 (110) 98 07/07/17 16:24 97.7 66 18 135/72 (93) 100 I/O 07/07/17 07/07/17 07/07/17 07/08/17 07/08/17 07/08/17 07:00 15:00 23:00 07:00 15:00 23:00 Intake Total 1000 ml Output Total 500 ml 200 ml Balance -500 ml -200 ml 1000 ml Intake IV Total 1000 ml Output Urine Total 500 ml 200 ml # Voids 1 Result Diagram: 07/07/17 0635 07/07/17 0635 Imaging Last Impressions Neck Magnetic Resonance Angiography 07/07/17 0000 Signed Impressions: Service Date/Time: Friday, July 07, 2017 15:22 - CONCLUSION: 1. Mild circumferential stenosis of the distal right vertebral artery at the vertebrobasilar junction. This appears less prominent than on head MRA examination. Widely patent left vertebral artery. Overall, findings should not result in clinically significant vertebrobasilar insufficiency. 2. No significant carotid flow-limiting stenosis. Ajay Gr MD Head Magnetic Resonance Angiography 07/07/17 0000 Signed Impressions: Service Date/Time: Friday, July 07, 2017 15:22 - CONCLUSION: 1. 1.5 cm length mild to moderate diffuse circumferential narrowing of the distal right vertebral artery at the basilar junction. Otherwise, widely patent distal left and basilar arteries. Doubt that the degree of stenosis is sufficient to result in clinical vertebrobasilar insufficiency unless there is a hemodynamically significant proximal left vertebral artery stenosis. 2. Hypoplastic right A1 segment. Ajay Gr MD Chest X-Ray 07/07/17 0000 Signed Impressions: Service Date/Time: Friday, July 07, 2017 14:12 - CONCLUSION: Cardiomegaly. No acute pulmonary disease. No contraindication to MRI Kareem Viramontes MD Brain MRI 07/07/17 0000 Signed Impressions: Service Date/Time: Friday, July 07, 2017 15:22 - CONCLUSION: Moderate central and cortical atrophy of the supra-and infratentorial brain. No abnormal areas of enhancement. Chester Lilly MD Head CT 07/06/17 0000 Signed Impressions: Service Date/Time: Thursday, July 06, 2017 17:57 - CONCLUSION: 1. Senescent changes with minimally prominent ventricles. Recommend clinical correlation for normal pressure hydrocephalus. Ajay Gr MD Objective Remarks General: Elderly male in no acute distress. Heart: Regular rate and rhythm. No murmur. Lungs: Clear to auscultation bilaterally. No wheezes, rales, or rhonchi. Breathing is nonlabored. Abdomen: Soft, nontender, nondistended. Extremities: No lower extremity edema. Psych: Alert, somewhat confused. Answers most questions appropriately. Procedures None Urinary Catheter: No Vascular Central Line Catheter: No A/P Assessment and Plan 1. Altered mental status, possible normal pressure hydrocephalus: Appreciate neurology recommendations. MRI/MRA noted. Continue PT. Lumbar puncture ordered. Continue Wellbutrin, Seroquel. 2. Hypertension: Continue amlodipine. 3. Anxiety: Continue home medications. 4. DVT prophylaxis: Avoid chemical prophylaxis in anticipation of possible lumbar puncture. Discharge Planning Pending neurologic workup. Shane Rose MD Jul 08, 2017 13:50
--- NOTE | 2017-07-08 15:18 | RADRPT ---
EXAM DATE/TIME: 07/08/2017 13:40 [facility] COMPARISON: No previous studies available for comparison. INDICATIONS : Patient presents with altered mental status in need of a lumbar puncture. MEDICAL HISTORY : Unable to obtain SURGICAL HISTORY : Unable to obtain ENCOUNTER: Initial ACUITY: 2 days LUMBAR PUNCTURE TIME: 1438 hours FLUORO TIME: 1.3 minutes ACCESS LEVEL: L3-4 Opening pressure was 13 cm H2O FLUID: 17 cc of clear CSF was collected and sent to the laboratory for analysis. PROCEDURE : 1. Fluoroscopic guided lumbar puncture. 2. Recording of opening pressure. The risks, benefits and alternatives to the procedure were explained and verbal and written consent w as obtained. The site was prepped in sterile fashion. Full sterile technique was used, including ca p, mask, sterile gloves and gown and a large sterile sheet. Hand hygiene and 2% chlorhexidine and/or betadine/alcohol prep was utilized per protocol for cutaneous antisepsis. The skin and subcutaneous tissues were infiltrated with local anesthetic solution. With fluoroscopic guidance the lumbar thecal sac was punctured at the above level described above and the opening pressure was recorded. The above described fluid was removed without difficulty. The patient tolerated the procedure well and there were no complications. CONCLUSION: Uncomplicated fluoroscopically guided lumbar puncture with pressures as above. Jd Noyola MD on July 08, 2017 at 15:15 Board Certified Radiologist. This report was verified electronically.
--- NOTE | 2017-07-08 15:19 | PD.RAD ---
Post Procedure Progress Note Pre Procedure Diagnosis: (1) Encephalopathy Post Procedure Diagnosis: (1) Encephalopathy Procedure Date: Jul 08, 2017 Supervising Radiologist: Jd Noyola Proceduralist/Assist: RT Peter(R) Anesthesia: Local Plan of Activity Patient to Unit: ROPU Patient Condition: Fair See PACS Report for procedural detail/treatment Spinal Procedure Lumbar Puncture L3-L4 Fluid Removal (CCs): 17 Fluid Description: Clear Puncture Time: 14:38 Findings: opening pressure 13cm H2O Jd Noyola MD Jul 08, 2017 15:19
[2017-07-08 15:38] LABS: TOTAL PROTEIN,CSF 44.8 MG/DL (15.0-45.0)
[2017-07-08 16:04] VITALS: BP 136/77; PULSE 67; RESP 18; TEMP 98.1; O2SAT 100
[2017-07-08 17:02] LABS: CSF LYMPHOCYTES 64 %; CSF MONOCYTES 32 %; CSF NEUTROPHILS 4 %
[2017-07-08 17:08] LABS: SUPERNATE COLOR TUBE #1 CLEAR (CLEAR); VOLUME TUBE # 1 3.3 ML
[2017-07-08 17:10] LABS: RBC TUBE #4 17 /MM3; WBC TUBE #4 17 /MM3 (0-10)
[2017-07-08] MEDS ORDERED: BISACODYL 10 MG SUPP RECTAL PRN (17:45)
[2017-07-08] MEDS ORDERED: MAGNESIUM HYDROXIDE SUSP 30 ML CUP PO PRN (17:45)
[2017-07-08] MEDS: DOCUSATE SODIUM 50 MG/SENNA 8.6 MG TAB PO SCH (20:00)
[2017-07-08 20:44] VITALS: BP 148/64; PULSE 77; RESP 16; TEMP 98.6; O2SAT 98
[2017-07-08] MEDS: ACYCLOVIR INJ 700 MG in SODIUM CHLORIDE 0.9% INJ 100 ML IV SCH (21:46)
[2017-07-09] MEDS: SODIUM CHLOR 0.9% 1000 ML INJ 1,000 ML IV SCH ×2 (01:10→13:52)
[2017-07-09 01:21] VITALS: BP 148/74; PULSE 67; RESP 14; TEMP 97.8; O2SAT 96
[2017-07-09] MEDS: AMOXICILLIN (TRIHYDRATE) 500 MG CAP PO SCH ×3 (05:45→22:28)
[2017-07-09] MEDS: ACYCLOVIR INJ 700 MG in SODIUM CHLORIDE 0.9% INJ 100 ML IV SCH ×3 (05:45→22:28)
[2017-07-09] MEDS: SODIUM CHLORIDE 0.9% FLUSH 10 ML FLUSH IV FLUSH SCH ×2 (09:00→20:30)
--- NOTE | 2017-07-09 09:39 | HHI.PR ---
Review/Management Diagnosis/Plan: (1) Encephalopathy ICD Codes: G93.40 - Encephalopathy, unspecified Plan: may have underlying emerging dementia MRI brain- atrophy, mild ventriculomegaly EEG- slowing ? on antipsychotic/antidepressant csf- 17 wbc/17rbc. glucose, protein nml. gram stain/cx negative recs very mild csf lymphocytosis. iv acyclovir added. d/c once pcr negative f/u rest of csf and lab results p.t. may need placement no driving (2) Ataxic gait ICD Codes: R26.0 - Ataxic gait Plan: Fall precautions Subjective Subjective Comments No acute events reported No headache No chest pain No dyspnea Active Medications Current Medications Medications (Trade) Dose Ordered Sig/Crystal Route Start Time Stop Time Status Last Admin (NS Flush) 2 ml UNSCH PRN IV FLUSH 07/06/17 22:00 (NS Flush) 2 ml BID IV FLUSH 07/07/17 09:00 Sodium Chloride 1,000 ml @ 84 mls/hr [id number] IV 07/07/17 00:45 07/09/17 01:10 (Norvasc) 2.5 mg DAILY PO 07/08/17 09:00 07/08/17 08:40 (Trimox) 500 mg Q8HR PO 07/07/17 22:00 07/09/17 05:45 (Wellbutrin Sr 12 Hr) 100 mg Q12HR PO 07/07/17 21:00 07/08/17 20:52 (SEROquel) 100 mg BID PO 07/07/17 21:00 07/08/17 20:52 (Pill Splitter) 1 ea UNSCH PRN OTHER 07/07/17 17:45 (Thiamine Inj) 100 mg DAILY IM 07/08/17 10:30 07/08/17 12:19 (Melissa-Colace) 1 tab BID PO 07/08/17 20:00 (Milk Of Magnesia Liq) 30 ml Q12H PRN PO 07/08/17 17:45 (Senokot) 17.2 mg Q12H PRN PO 07/08/17 17:45 (Dulcolax Supp) 10 mg DAILY PRN RECTAL 07/08/17 17:45 Acyclovir Sodium 700 mg/Sodium Chloride 100 ml @ 100 mls/hr Q8H IV 2/21/18 22:00 07/09/17 05:45 Allergies Allergies Coded Allergies No Known Allergies (Unverified07/06/17) Review of Systems Constitutional: Negative except HPI Eye: Negative Except HPI ENMT: Negative except HPI Respiratory: Negative except HPI Cardiovascular: Negative except HPI Gastrointestinal: Negative except HPI Jonathan/Lymph: Negative except HPI Musculoskeletal: Negative except HPI Neurologic: Negative except HPI Psychiatric: Negative except HPI All other ROS: ROS reviewed as documented in chart Exam I&O / VS Vital Signs Date Time Temp Pulse Resp B/P (MAP) Pulse Ox O2 Delivery O2 Flow Rate FiO2 07/09/17 01:21 97.8 67 14 148/74 (98) 96 07/08/17 20:44 98.6 77 16 148/64 (92) 98 07/08/17 16:04 98.1 67 18 136/77 (96) 100 07/08/17 12:12 97.2 63 18 110/60 (77) 99 General: No acute distress Eye: PERRL, EOMI Respiratory: Lungs CTA, Non-labored respirations, Symmetrical expansion Cardiology: Normal rate Neurologic: Alert, Normal sensory, No focal defects, CN II-XII intact, Normal DTR's Psychiatric: Cooperative, Appropriate mood & affect Exam Comments 2-3, not to exact date, pres Trump, follows, calm, pleasant, eomi, face sym, wilson to gravity Objective Micro and Labs Laboratory Tests Test 07/08/17 12:00 07/08/17 14:38 Prothrombin Time 11.7 Prothromb Time International Ratio 1.2 Activated Partial Thromboplast Time 27.3 CSF Volume (Tube 1) 3.3 CSF Supernatant Color (tube 1) CLEAR CSF Gross Blood (Tube 1) 0 CSF Volume (Tube 2) 3.8 CSF Supernatant Color (tube 2) CLEAR CSF Gross Blood (Tube 2) 0 CSF Volume (Tube 3) 3.8 CSF Supernatant Color (tube 3) CLEAR CSF Volume (Tube 4) 5.5 CSF Supernatant Color (tube 4) CLEAR CSF WBC (Tube 4) 17 CSF RBC (Tube 4) 17 CSF Neutrophils 4 CSF Lymphocytes 64 CSF Monocytes 32 CSF Glucose 61 CSF Total Protein 44.8 Date/Time Source Procedure Growth Status 07/08/17 14:38 Cerebral Spinal Fluid Lumbar Puncture Gram Stain - Final Resulted 07/08/17 14:38 Cerebral Spinal Fluid Lumbar Puncture CSF Culture - Preliminary NO GROWTH IN 24 HOURS. Resulted Garewal,Sreekanth MD Jul 09, 2017 09:39
[2017-07-09] MEDS: THIAMINE HCL 200 MG/2 ML VIAL IM SCH (10:05)
[2017-07-09] MEDS: buPROPion HCL 100 MG SUSTAINED RELEASE TAB PO SCH ×2 (10:06→20:30)
[2017-07-09] MEDS: DOCUSATE SODIUM 50 MG/SENNA 8.6 MG TAB PO SCH ×2 (10:06→20:30)
[2017-07-09] MEDS: QUEtiapine FUMARATE 100 MG TAB PO SCH ×2 (10:06→20:30)
[2017-07-09] MEDS: amLODIPine BESYLATE 5 MG TAB PO SCH (10:06)
[2017-07-09 10:12] VITALS: BP 114/67; PULSE 74; RESP 18; TEMP 96.9; O2SAT 98
[2017-07-09 12:19] VITALS: BP 114/63; PULSE 75; RESP 18; TEMP 97.7; O2SAT 99
[2017-07-09] MEDS ORDERED: ONDANSETRON HCL 4 MG/2 ML VIAL IV PUSH PRN (13:45)
--- NOTE | 2017-07-09 13:58 | HHI.PR ---
Subjective Remarks Follow up confusion, gait abnormalities. Patient reporting some nausea today. No chest pain, dyspnea. Objective Vitals Vital Signs Date Time Temp Pulse Resp B/P (MAP) Pulse Ox O2 Delivery O2 Flow Rate FiO2 07/09/17 12:19 97.7 75 18 114/63 (80) 99 07/09/17 10:12 96.9 74 18 114/67 (83) 98 07/09/17 01:21 97.8 67 14 148/74 (98) 96 07/08/17 20:44 98.6 77 16 148/64 (92) 98 07/08/17 16:04 98.1 67 18 136/77 (96) 100 I/O 07/08/17 07/08/17 07/08/17 07/09/17 07/09/17 07/09/17 07:00 15:00 23:00 07:00 15:00 23:00 Intake Total 1000 ml 480 ml Balance 1000 ml 480 ml Intake Oral 480 ml IV Total 1000 ml # Voids 1 3 # Bowel Movements 1 Result Diagram: 07/07/17 0635 07/07/17 0635 Imaging Last Impressions Lumbar Puncture Fluoroscopy 07/08/17 0000 Signed Impressions: Service Date/Time: Saturday, July 08, 2017 13:40 - CONCLUSION: Uncomplicated fluoroscopically guided lumbar puncture with pressures as above. Jd Noyola MD Neck Magnetic Resonance Angiography 07/07/17 0000 Signed Impressions: Service Date/Time: Friday, July 07, 2017 15:22 - CONCLUSION: 1. Mild circumferential stenosis of the distal right vertebral artery at the vertebrobasilar junction. This appears less prominent than on head MRA examination. Widely patent left vertebral artery. Overall, findings should not result in clinically significant vertebrobasilar insufficiency. 2. No significant carotid flow-limiting stenosis. Ajay Gr MD Head Magnetic Resonance Angiography 07/07/17 0000 Signed Impressions: Service Date/Time: Friday, July 07, 2017 15:22 - CONCLUSION: 1. 1.5 cm length mild to moderate diffuse circumferential narrowing of the distal right vertebral artery at the basilar junction. Otherwise, widely patent distal left and basilar arteries. Doubt that the degree of stenosis is sufficient to result in clinical vertebrobasilar insufficiency unless there is a hemodynamically significant proximal left vertebral artery stenosis. 2. Hypoplastic right A1 segment. Ajay Gr MD Chest X-Ray 07/07/17 0000 Signed Impressions: Service Date/Time: Friday, July 07, 2017 14:12 - CONCLUSION: Cardiomegaly. No acute pulmonary disease. No contraindication to MRI Kareem Viramontes MD Brain MRI 07/07/17 0000 Signed Impressions: Service Date/Time: Friday, July 07, 2017 15:22 - CONCLUSION: Moderate central and cortical atrophy of the supra-and infratentorial brain. No abnormal areas of enhancement. Chester Lilly MD Head CT 07/06/17 0000 Signed Impressions: Service Date/Time: Thursday, July 06, 2017 17:57 - CONCLUSION: 1. Senescent changes with minimally prominent ventricles. Recommend clinical correlation for normal pressure hydrocephalus. Ajay Gr MD Objective Remarks General: Elderly male in no acute distress. Heart: Regular rate and rhythm. No murmur. Lungs: Clear to auscultation bilaterally. No wheezes, rales, or rhonchi. Breathing is nonlabored. Abdomen: Soft, nontender, nondistended. Extremities: No lower extremity edema. Psych: Alert, somewhat confused. Answers questions appropriately. Procedures 07/08/17 Lumbar puncture Urinary Catheter: No Vascular Central Line Catheter: No A/P Assessment and Plan 1. Altered mental status, possible normal pressure hydrocephalus: Appreciate neurology recommendations. MRI/MRA noted. Continue PT. Lumbar puncture done. Acyclovir IV started by neurology. Continue Wellbutrin, Seroquel. 2. Hypertension: Continue amlodipine. 3. Anxiety: Continue home medications. 4. DVT prophylaxis: SCDs/JAMIE finche. 5. Amoxicillin continued from outpatient med list. Patient taking Amoxicillin for dental infection. Discharge Planning Pending neurologic workup. Shane Rose MD Jul 09, 2017 13:58
[2017-07-09 16:15] VITALS: BP 118/69; PULSE 79; RESP 18; TEMP 98.1; O2SAT 95
[2017-07-09 21:37] VITALS: BP 132/72; PULSE 72; RESP 19; TEMP 98; O2SAT 94
[2017-07-10] VITALS: BP 121/64; PULSE 64; RESP 18; TEMP 98; O2SAT 95
[2017-07-10] MEDS: SODIUM CHLOR 0.9% 1000 ML INJ 1,000 ML IV SCH ×2 (00:15→11:59)
[2017-07-10 03:42] VITALS: BP 133/72; PULSE 72; RESP 18; TEMP 98.7; O2SAT 95
[2017-07-10] MEDS: AMOXICILLIN (TRIHYDRATE) 500 MG CAP PO SCH ×3 (05:37→22:49)
[2017-07-10] MEDS: ACYCLOVIR INJ 700 MG in SODIUM CHLORIDE 0.9% INJ 100 ML IV SCH ×2 (05:38→14:05)
[2017-07-10 05:42] LABS: AUTOMATED NEUTROPHIL # 6.2 TH/MM3 (1.8-7.7); BASOPHIL % 0.3 % (0.0-2.0); EOSINOPHIL % 0.2 % (0.0-4.0); HEMATOCRIT 35.6 % (39.0-51.0); HEMOGLOBIN 12.4 GM/DL (13.0-17.0); LYMPH % 14.3 % (9.0-44.0); LYMPHOCYTE # 1.2 TH/MM3 (1.0-4.8); MEAN CELL VOLUME 95.7 FL (80.0-100.0); MEAN CORPUSCULAR HEMOGLOBIN 33.4 PG (27.0-34.0); MEAN CORPUSCULAR HGB CONC 34.9 % (32.0-36.0); MONO % 12.7 % (0.0-8.0); MONOCYTE # 1.1 TH/MM3 (0-0.9); NEUT % 72.5 % (16.0-70.0); PLATELET COUNT 155 TH/MM3 (150-450); RED BLOOD COUNT 3.73 MIL/MM3 (4.50-5.90); RED CELL DISTRIBUTION WIDTH 14.5 % (11.6-17.2); WHITE BLOOD COUNT 8.6 TH/MM3 (4.0-11.0)
[2017-07-10 06:10] LABS: CALCIUM 9.2 MG/DL (8.5-10.1)
[2017-07-10 06:14] LABS: CREATININE 2.5 MG/DL (0.60-1.30)
--- NOTE | 2017-07-10 08:18 | HHI.PR ---
Review/Management Diagnosis/Plan: (1) Encephalopathy ICD Codes: G93.40 - Encephalopathy, unspecified Plan: may have underlying emerging dementia, alz type MRI brain- atrophy, mild ventriculomegaly EEG- slowing ? on antipsychotic/antidepressant csf- 17 wbc/17rbc. glucose, protein nml. gram stain/cx negative very mild csf lymphocytosis. iv acyclovir added. d/c once pcr negative recs neuropsychology eval therapy may need placement, home health care /d/c planning once hsv pcr back and negative no driving (2) Ataxic gait ICD Codes: R26.0 - Ataxic gait Plan: Fall precautions Subjective Subjective Comments No acute events reported No headache No chest pain No dyspnea Active Medications Current Medications Medications (Trade) Dose Ordered Sig/Crystal Route Start Time Stop Time Status Last Admin (NS Flush) 2 ml UNSCH PRN IV FLUSH 07/06/17 22:00 (NS Flush) 2 ml BID IV FLUSH 07/07/17 09:00 Sodium Chloride 1,000 ml @ 84 mls/hr [id number] IV 07/07/17 00:45 07/09/17 13:52 (Norvasc) 2.5 mg DAILY PO 07/08/17 09:00 07/09/17 10:06 (Trimox) 500 mg Q8HR PO 07/07/17 22:00 07/10/17 05:37 (Wellbutrin Sr 12 Hr) 100 mg Q12HR PO 07/07/17 21:00 07/09/17 20:30 (SEROquel) 100 mg BID PO 07/07/17 21:00 07/09/17 20:30 (Pill Splitter) 1 ea UNSCH PRN OTHER 07/07/17 17:45 (Thiamine Inj) 100 mg DAILY IM 07/08/17 10:30 07/09/17 10:05 (Melissa-Colace) 1 tab BID PO 07/08/17 20:00 07/09/17 20:30 (Milk Of Magnesia Liq) 30 ml Q12H PRN PO 07/08/17 17:45 (Senokot) 17.2 mg Q12H PRN PO 07/08/17 17:45 (Dulcolax Supp) 10 mg DAILY PRN RECTAL 07/08/17 17:45 Acyclovir Sodium 700 mg/Sodium Chloride 100 ml @ 100 mls/hr Q8H IV 07/08/17 22:00 07/10/17 05:38 (Zofran Inj) 4 mg Q8HR PRN IV PUSH 07/09/17 13:45 07/09/17 13:52 Allergies Allergies Coded Allergies No Known Allergies (Unverified07/06/17) Review of Systems Constitutional: Negative except HPI Eye: Negative Except HPI ENMT: Negative except HPI Respiratory: Negative except HPI Cardiovascular: Negative except HPI Gastrointestinal: Negative except HPI Jonathan/Lymph: Negative except HPI Musculoskeletal: Negative except HPI Neurologic: Negative except HPI Psychiatric: Negative except HPI All other ROS: ROS reviewed as documented in chart Exam I&O / VS 07/10/17 07/10/17 07/11/17 15:00 23:00 07:00 Intake Total 100 ml Balance 100 ml IV Total 100 ml Vital Signs Date Time Temp Pulse Resp B/P (MAP) Pulse Ox O2 Delivery O2 Flow Rate FiO2 07/10/17 03:42 98.7 72 18 133/72 (92) 95 07/10/17 00:00 98.0 64 18 121/64 (83) 95 07/09/17 21:37 98.0 72 19 132/72 (92) 94 07/09/17 16:15 98.1 79 18 118/69 (85) 95 07/09/17 12:19 97.7 75 18 114/63 (80) 99 07/09/17 10:12 96.9 74 18 114/67 (83) 98 General: No acute distress Eye: PERRL, EOMI Respiratory: Lungs CTA, Non-labored respirations, Symmetrical expansion Cardiology: Normal rate Neurologic: Alert, Normal sensory, No focal defects, CN II-XII intact, Normal DTR's Psychiatric: Cooperative, Appropriate mood & affect Exam Comments 2-3, not to exact date, pres Trump, recognizes me, follows, calm, pleasant, eomi , face sym, wilson to gravity Objective Micro and Labs Laboratory Tests Test 07/10/17 03:44 White Blood Count 8.6 Red Blood Count 3.73 Hemoglobin 12.4 Hematocrit 35.6 Mean Corpuscular Volume 95.7 Mean Corpuscular Hemoglobin 33.4 Mean Corpuscular Hemoglobin Concent 34.9 Red Cell Distribution Width 14.5 Platelet Count 155 Mean Platelet Volume 8.0 Neutrophils (%) (Auto) 72.5 Lymphocytes (%) (Auto) 14.3 Monocytes (%) (Auto) 12.7 Eosinophils (%) (Auto) 0.2 Basophils (%) (Auto) 0.3 Neutrophils # (Auto) 6.2 Lymphocytes # (Auto) 1.2 Monocytes # (Auto) 1.1 Eosinophils # (Auto) 0.0 Basophils # (Auto) 0.0 CBC Comment DIFF FINAL Differential Comment Blood Urea Nitrogen 28 Creatinine 2.50 Random Glucose 99 Calcium Level 9.2 Sodium Level 145 Potassium Level 3.6 Chloride Level 112 Carbon Dioxide Level 25.0 Anion Gap 8 Estimat Glomerular Filtration Rate 25 Date/Time Source Procedure Growth Status 07/08/17 14:38 Cerebral Spinal Fluid Lumbar Puncture Gram Stain - Final Resulted 07/08/17 14:38 Cerebral Spinal Fluid Lumbar Puncture CSF Culture - Preliminary NO GROWTH IN 24 HOURS. Resulted Sreekanth Mcdowell MD Jul 10, 2017 08:18
[2017-07-10] MEDS: QUEtiapine FUMARATE 100 MG TAB PO SCH ×2 (08:38→22:49)
[2017-07-10] MEDS: DOCUSATE SODIUM 50 MG/SENNA 8.6 MG TAB PO SCH ×2 (08:38→22:49)
[2017-07-10] MEDS: buPROPion HCL 100 MG SUSTAINED RELEASE TAB PO SCH ×2 (08:38→22:49)
[2017-07-10] MEDS: THIAMINE HCL 200 MG/2 ML VIAL IM SCH (08:39)
[2017-07-10] MEDS: amLODIPine BESYLATE 5 MG TAB PO SCH (08:39)
[2017-07-10] MEDS: SODIUM CHLORIDE 0.9% FLUSH 10 ML FLUSH IV FLUSH SCH ×2 (08:39→22:50)
[2017-07-10 08:43] VITALS: BP 114/60; PULSE 72; RESP 20; TEMP 97.9; O2SAT 96
[2017-07-10 10:13] LABS: ENTEROVIRUS PCR RESULT Negative (Negative); ENTEROVIRUS PCR SPEC SOURCE CSF; HSV 1,PCR Negative (Negative)
--- NOTE | 2017-07-10 12:44 | PD.HHIRBSE ---
Patient History Record/History Review Reason for Referral: The patient is a 72 year old right handed male recently admitted for increased confusion and mental status changes with noted gait difficulties and urinary incontinence. His neighbors, who were bedside, reported that this patient has been getting increasingly confused, and deteriorating self-cares for several months. Recent brain MRI showed atrophy and mild ventriculomegaly and his lab work-up was generally normal. He is referred for baseline neurobehavioral status examination to assess cognitive, behavioral and emotional aspects of the injury and to provide treatment recommendations. Historically, this patient is living alone. He has a Bachelor degree and worked as a computer trainer. He is , has no children, and [place]. Past Surgical/Medical History Major surgery in last 100 days: Unknown Medication Active Medications Ondansetron HCl (Zofran Inj) 4 mg Q8HR PRN IV PUSH Last administered on at 13:52; Admin Dose 4 MG; Start 07/09/17 at 13:45 Mental Status Assessment Orientation: oriented to Self, disoriented to Place, disoriented to Time, disoriented to Situation Mental Status: WFL: Language/Interactions, Impaired: Thought processing, Attention, Learning/Memory, Problem-Solving Observation The patient is alert and oriented to person only. He was not oriented to place, time or circumstances surrounding the reason for hospitalization. His closest guess as to time was June. In terms of attention skills, the patient was unable to remain on task or remember basic or complex instructions. In terms of memory functioning, the patient was unable to demonstrate adequate carryover of information even after a brief period of time. The patient attempted to initiate spontaneous conversation. Speech was characterized by adequate prosody , grammar and volume but difficulties with articulation and rate. Basic naming skills were not intact. Language repetition skills were intact. The patients comprehensions for basic one- and two-stage commands were not intact. Basic verbal abstraction and problem-solving skills were not intact. The patient appears to posses poor insight and awareness into their situation and within the limits of this brief evaluation, poor judgment. Impression Major neurocognitive deficits inconsistent with baseline expectations. Adjustment/Coping Assessment Adjustment/Coping: Severe: Awareness, Insight Observation The patients thought content was free from suicidal, homicidal or paranoid ideation, and the patients thought processes were concrete and bradyphrenic. The patients mood appeared euthymic, and his affect was stable and appropriate. LTG Status: Deferred STG Status: Deferred Team Members: Neuropsychologist Behavior Assessment Agitation: Mild Treatment Engagement: Minimal Observation Behaviorally, the patient demonstrated no signs of agitation or disinhibition but he was at times impulsive due to his inability to recall directives previously told to him. There was no remarkable evidence of a formal thought disorder or psychosis. LTG - Status: Deferred Team Members: Neuropsychologist Feedback/Education Barriers to Treatment: Capacity to Self-Determine, Cognition, Insight, Mental Status Diagnosis/Discharge Plan Impression This 72 year old man was admitted to [facility] with progressive neurocognitive decline over several months, exacerbating to a point where his neighbors contacted the authorities. From a neuropsychological testing standpoint, his cognition was too poor for formal testing. However, from a neurobehavioral standpoint, this patient clearly has neurocognitive impairments inconsistent with the normal aging process or the singular effects of emotional distress on cognition, and his decline is significantly below baseline expectations. He demonstrates jeri impairments of memory and learning, as well as complex problem solving. His insight, awareness and judgment are significantly compromised. Diagnostically, this pattern of performance is consistent with a Major Neurocognitive Disorder, possibly related to Alzheimer's although his pattern of neurological findings suggest a possible NPH component. Regardless, his neurocognitive impairment indicates that he lacks cognitive capacity at this point to make decisions as he is unable to appreciate a situation and its likely consequences, nor is he able to manipulate information rationally. He is an unsafe discharge to the home environment, and will more likely than not require a facility with increased structure going forward. This patient should no longer operate a motor vehicle. Finally, continued medical evaluation and treatment to find reversible causes for his neurocognitive decline is recommended. My opinion concerning rehabilitation is that first a cause must be found for his decline prior to initiating treatment. A barrier to his rehabilitation participation also is a lack of a discharge plan (he will need family to be there on site post rehab). Diagnosis: (1) Major neurocognitive disorder due to another medical condition with behavioral disturbance Maximizing acute care outcome It is recommended that the patient be monitored for emergent behavioral impulsivity as the medical condition evolves. This patients neuropathological challenges may limit his rehabilitation potential going forward, and these challenges will require specialized therapeutic skills to maximize outcome. At this point in the recovery process, the patient does not have cognitive capacity as the patient is unable to understand a situation and its likely consequences, nor is he able to manipulate information rationally. Cognitive capacity will be assessed throughout the recovery process. Discharge Planning Anticipated Problems Ongoing areas of concern will include behavioral impulsivity, lack of insight and judgment, which may not improve with time or treatment. Anticipated problems include a safe place for him to go to after his hospital stay, and he may require NH placement. Treatment Plan This clinician will continue to follow with you throughout the course of this patients acute care treatment, and I will be available to meet with the patient s family/support system to facilitate their understanding and the ongoing care of their family member. The goals of neuropsychological intervention shall be both educational and supportive to the family/support system as is deemed clinically appropriate. Discharge Needs To be determined. Session Attendance Variance 60 minutes Thank you Thank you for the opportunity to assist in this patients care. Oneil Barkley, Ph.D., ABPP Board Certified in Clinical Neuropsychology [place] [employer] [place] Licensed Psychologist #[id number] Oneil Barkley PhD Jul 10, 2017 12:44 pm
--- NOTE | 2017-07-10 16:36 | HHI.PR ---
Subjective Remarks Follow up altered mental status, gait abnormalities. Patient denies complaints at this time. Family at bedside. Objective Vitals Vital Signs Date Time Temp Pulse Resp B/P (MAP) Pulse Ox O2 Delivery O2 Flow Rate FiO2 07/10/17 08:43 97.9 72 20 114/60 (78) 96 07/10/17 03:42 98.7 72 18 133/72 (92) 95 07/10/17 00:00 98.0 64 18 121/64 (83) 95 07/09/17 21:37 98.0 72 19 132/72 (92) 94 I/O 07/09/17 07/09/17 07/09/17 07/10/17 07/10/17 07/10/17 07:00 15:00 23:00 07:00 15:00 23:00 Intake Total 480 ml 70 ml 340 ml 100 ml Balance 480 ml 70 ml 340 ml 100 ml Intake Oral 480 ml 240 ml IV Total 70 ml 100 ml 100 ml # Voids 3 6 # Bowel Movements 1 0 Result Diagram: 07/10/17 0344 07/10/17 0344 Imaging Last Impressions Lumbar Puncture Fluoroscopy 07/08/17 0000 Signed Impressions: Service Date/Time: Saturday, July 08, 2017 13:40 - CONCLUSION: Uncomplicated fluoroscopically guided lumbar puncture with pressures as above. Jd Noyola MD Neck Magnetic Resonance Angiography 07/07/17 0000 Signed Impressions: Service Date/Time: Friday, July 07, 2017 15:22 - CONCLUSION: 1. Mild circumferential stenosis of the distal right vertebral artery at the vertebrobasilar junction. This appears less prominent than on head MRA examination. Widely patent left vertebral artery. Overall, findings should not result in clinically significant vertebrobasilar insufficiency. 2. No significant carotid flow-limiting stenosis. Ajay Gr MD Head Magnetic Resonance Angiography 07/07/17 0000 Signed Impressions: Service Date/Time: Friday, July 07, 2017 15:22 - CONCLUSION: 1. 1.5 cm length mild to moderate diffuse circumferential narrowing of the distal right vertebral artery at the basilar junction. Otherwise, widely patent distal left and basilar arteries. Doubt that the degree of stenosis is sufficient to result in clinical vertebrobasilar insufficiency unless there is a hemodynamically significant proximal left vertebral artery stenosis. 2. Hypoplastic right A1 segment. Ajay Gr MD Chest X-Ray 07/07/17 0000 Signed Impressions: Service Date/Time: Friday, July 07, 2017 14:12 - CONCLUSION: Cardiomegaly. No acute pulmonary disease. No contraindication to MRI Kareem Viramontes MD Brain MRI 07/07/17 0000 Signed Impressions: Service Date/Time: Friday, July 07, 2017 15:22 - CONCLUSION: Moderate central and cortical atrophy of the supra-and infratentorial brain. No abnormal areas of enhancement. Chester Lilly MD Head CT 07/06/17 0000 Signed Impressions: Service Date/Time: Thursday, July 06, 2017 17:57 - CONCLUSION: 1. Senescent changes with minimally prominent ventricles. Recommend clinical correlation for normal pressure hydrocephalus. Ajay Gr MD Objective Remarks General: Elderly male in no acute distress. Heart: Regular rate and rhythm. No murmur. Lungs: Clear to auscultation bilaterally. No wheezes, rales, or rhonchi. Breathing is nonlabored. Abdomen: Soft, nontender, nondistended. Extremities: No lower extremity edema. Psych: Alert, somewhat confused. Answers questions appropriately. Procedures 07/08/17 Lumbar puncture Urinary Catheter: No Vascular Central Line Catheter: No A/P Assessment and Plan 1. Altered mental status, possible normal pressure hydrocephalus: Appreciate neurology recommendations. MRI/MRA noted. Continue PT. Lumbar puncture done. Acyclovir IV started by neurology. HSV PCR negative. Discontinue acyclovir. Continue Wellbutrin, Seroquel. 2. Hypertension: Continue amlodipine. BP well controlled. 3. Anxiety: Continue home medications. 4. DVT prophylaxis: SCDs/JAMIE hose. 5. Amoxicillin continued from outpatient med list. Patient taking Amoxicillin for dental infection. 6. Acute kidney injury: ?secondary to medications. Stop acyclovir. Discharge Planning Pending neurologic workup. Shane Rose MD Jul 10, 2017 16:36
[2017-07-10 17:00] VITALS: BP 120/62; PULSE 70; RESP 18; TEMP 98.9; O2SAT 98
[2017-07-10 20:57] VITALS: BP 140/75; PULSE 84; RESP 17; TEMP 98.3; O2SAT 95
[2017-07-11] VITALS: BP 140/82; PULSE 87; RESP 16; TEMP 96.7; O2SAT 98
[2017-07-11] MEDS: AMOXICILLIN (TRIHYDRATE) 500 MG CAP PO SCH ×3 (06:22→20:25)
[2017-07-11] MEDS: SODIUM CHLOR 0.9% 1000 ML INJ 1,000 ML IV SCH ×3 (06:27→20:28)
[2017-07-11 07:05] LABS: AUTOMATED NEUTROPHIL # 5.8 TH/MM3 (1.8-7.7); BASOPHIL % 0.4 % (0.0-2.0); EOSINOPHIL % 0.4 % (0.0-4.0); HEMATOCRIT 37.3 % (39.0-51.0); HEMOGLOBIN 13.1 GM/DL (13.0-17.0); LYMPH % 18.2 % (9.0-44.0); LYMPHOCYTE # 1.5 TH/MM3 (1.0-4.8); MEAN CELL VOLUME 95.1 FL (80.0-100.0); MEAN CORPUSCULAR HEMOGLOBIN 33.4 PG (27.0-34.0); MEAN CORPUSCULAR HGB CONC 35.1 % (32.0-36.0); MEAN PLATELET VOLUME 7.9 FL (7.0-11.0); MONOCYTE # 0.7 TH/MM3 (0-0.9); PLATELET COUNT 158 TH/MM3 (150-450); RED BLOOD COUNT 3.92 MIL/MM3 (4.50-5.90); RED CELL DISTRIBUTION WIDTH 14.4 % (11.6-17.2)
[2017-07-11 07:24] LABS: BICARBONATE 27.2 MEQ/L (21.0-32.0); CALCIUM 9.4 MG/DL (8.5-10.1); CREATININE 2.15 MG/DL (0.60-1.30); MAGNESIUM 2.1 MG/DL (1.5-2.5)
[2017-07-11 08:00] VITALS: BP 127/72; PULSE 78; RESP 19; TEMP 97.3; O2SAT 99
[2017-07-11] MEDS: buPROPion HCL 100 MG SUSTAINED RELEASE TAB PO SCH ×2 (08:57→20:25)
[2017-07-11] MEDS: amLODIPine BESYLATE 5 MG TAB PO SCH (08:57)
[2017-07-11] MEDS: QUEtiapine FUMARATE 100 MG TAB PO SCH ×2 (08:57→20:25)
[2017-07-11] MEDS: DOCUSATE SODIUM 50 MG/SENNA 8.6 MG TAB PO SCH ×2 (08:57→20:25)
[2017-07-11] MEDS: SODIUM CHLORIDE 0.9% FLUSH 10 ML FLUSH IV FLUSH SCH ×2 (08:59→20:24)
[2017-07-11] MEDS: THIAMINE HCL 200 MG/2 ML VIAL IM SCH (09:19)
[2017-07-11 09:58] LABS: METHYLMALONIC ACID 0.1 nmol/mL (<=0.40)
--- NOTE | 2017-07-11 10:05 | HHI.PR ---
Subjective Remarks Follow up confusion, acute kidney injury. Patient has no complaints at this time. He remains confused. Denies pain, dyspnea. Objective Vitals Vital Signs Date Time Temp Pulse Resp B/P (MAP) Pulse Ox O2 Delivery O2 Flow Rate FiO2 07/11/17 08:00 97.3 78 19 127/72 (90) 99 07/11/17 00:00 96.7 87 16 140/82 (101) 98 07/10/17 20:57 98.3 84 17 140/75 (96) 95 07/10/17 17:00 98.9 70 18 120/62 (81) 98 I/O 07/10/17 07/10/17 07/10/17 07/11/17 07/11/17 07/11/17 07:00 15:00 23:00 07:00 15:00 23:00 Intake Total 340 ml 100 ml 1300 ml Balance 340 ml 100 ml 1300 ml Intake Oral 240 ml 300 ml IV Total 100 ml 100 ml 1000 ml # Voids 6 4 # Bowel Movements 0 Result Diagram: 07/11/17 0610 07/11/17 0610 Imaging Last Impressions Lumbar Puncture Fluoroscopy 07/08/17 0000 Signed Impressions: Service Date/Time: Saturday, July 08, 2017 13:40 - CONCLUSION: Uncomplicated fluoroscopically guided lumbar puncture with pressures as above. Jd Noyola MD Neck Magnetic Resonance Angiography 07/07/17 0000 Signed Impressions: Service Date/Time: Friday, July 07, 2017 15:22 - CONCLUSION: 1. Mild circumferential stenosis of the distal right vertebral artery at the vertebrobasilar junction. This appears less prominent than on head MRA examination. Widely patent left vertebral artery. Overall, findings should not result in clinically significant vertebrobasilar insufficiency. 2. No significant carotid flow-limiting stenosis. Ajay Gr MD Head Magnetic Resonance Angiography 07/07/17 0000 Signed Impressions: Service Date/Time: Friday, July 07, 2017 15:22 - CONCLUSION: 1. 1.5 cm length mild to moderate diffuse circumferential narrowing of the distal right vertebral artery at the basilar junction. Otherwise, widely patent distal left and basilar arteries. Doubt that the degree of stenosis is sufficient to result in clinical vertebrobasilar insufficiency unless there is a hemodynamically significant proximal left vertebral artery stenosis. 2. Hypoplastic right A1 segment. Ajay Gr MD Chest X-Ray 07/07/17 0000 Signed Impressions: Service Date/Time: Friday, July 07, 2017 14:12 - CONCLUSION: Cardiomegaly. No acute pulmonary disease. No contraindication to MRI Kareem Viramontes MD Brain MRI 07/07/17 0000 Signed Impressions: Service Date/Time: Friday, July 07, 2017 15:22 - CONCLUSION: Moderate central and cortical atrophy of the supra-and infratentorial brain. No abnormal areas of enhancement. Chester Lilly MD Head CT 07/06/17 0000 Signed Impressions: Service Date/Time: Thursday, July 06, 2017 17:57 - CONCLUSION: 1. Senescent changes with minimally prominent ventricles. Recommend clinical correlation for normal pressure hydrocephalus. Ajay Gr MD Objective Remarks General: Elderly male in no acute distress. Heart: Regular rate and rhythm. No murmur. Lungs: Clear to auscultation bilaterally. No wheezes, rales, or rhonchi. Breathing is nonlabored. Abdomen: Soft, nontender, nondistended. Extremities: No lower extremity edema. SCDs. Psych: Alert, confused. Procedures 07/08/17 Lumbar puncture Urinary Catheter: No Vascular Central Line Catheter: No A/P Assessment and Plan 1. Altered mental status, possible normal pressure hydrocephalus: Appreciate neurology recommendations. MRI/MRA noted. Continue PT. Lumbar puncture done. Acyclovir IV started by neurology. HSV PCR negative. Acyclovir discontinued. Continue Wellbutrin, Seroquel. 2. Hypertension: Continue amlodipine. BP well controlled. 3. Anxiety: Continue home medications. 4. DVT prophylaxis: SCDs/JAMIE finche. 5. Amoxicillin continued from outpatient med list. Patient taking Amoxicillin for dental infection. 6. Acute kidney injury: Likely secondary to medications. Acyclovir discontinued. Creatinine slightly improved today. Continue IV fluids. Discharge Planning Patient will need SNF/rehab. Plan discharge soon pending improvement of renal function. Shane Rose MD Jul 11, 2017 10:05
[2017-07-11] MEDS ORDERED: MULT-315 (10:52)
[2017-07-11] MEDS ORDERED: QUET1TAB8 PO (10:52)
[2017-07-11] MEDS ORDERED: FOLI400T PO (10:52)
[2017-07-11] MEDS ORDERED: ASPI-516 (10:52)
[2017-07-11 11:46] VITALS: BP 115/67; PULSE 73; RESP 18; TEMP 96.7; O2SAT 97
[2017-07-11 15:20] LABS: CSF CRYPTOCOCCUS AG CONF ND (NOT DETECTD)
[2017-07-11 16:00] VITALS: BP 113/76; PULSE 78; RESP 17; TEMP 98; O2SAT 98
[2017-07-11] MEDS ORDERED: MIRA3350 PO (18:13)
[2017-07-11] MEDS: SENNOSIDES 8.6 MG TAB PO PRN (18:15)
[2017-07-11 19:15] VITALS: BP 124/87; PULSE 72; RESP 18; TEMP 96.9; O2SAT 97
[2017-07-11 19:52] LABS: CSF CRYPTOCOCCUS ANTIGEN NOT DETECTED (NEGATIVE); VDRL CSF NON-REACTIVE (NON-REACTVE)
[2017-07-11 23:41] VITALS: BP 135/87; PULSE 68; RESP 17; TEMP 97.1; O2SAT 99
[2017-07-12] MEDS: AMOXICILLIN (TRIHYDRATE) 500 MG CAP PO SCH ×3 (05:44→22:12)
[2017-07-12 05:52] VITALS: BP 121/68; PULSE 63; RESP 17; TEMP 96.7; O2SAT 98
[2017-07-12] MEDS: QUEtiapine FUMARATE 100 MG TAB PO SCH ×2 (07:18→20:12)
[2017-07-12 08:00] VITALS: BP 131/74; PULSE 65; RESP 18; TEMP 96.5; O2SAT 99
[2017-07-12 08:39] LABS: CALCIUM 8.9 MG/DL (8.5-10.1); CREATININE 1.37 MG/DL (0.60-1.30)
[2017-07-12] MEDS: buPROPion HCL 100 MG SUSTAINED RELEASE TAB PO SCH ×2 (09:27→20:12)
[2017-07-12] MEDS: SENNOSIDES 8.6 MG TAB PO PRN (09:27)
[2017-07-12] MEDS: amLODIPine BESYLATE 5 MG TAB PO SCH (09:27)
[2017-07-12] MEDS: DOCUSATE SODIUM 50 MG/SENNA 8.6 MG TAB PO SCH ×2 (09:27→20:12)
[2017-07-12] MEDS: THIAMINE HCL 200 MG/2 ML VIAL IM SCH (09:31)
[2017-07-12] MEDS: SODIUM CHLORIDE 0.9% FLUSH 10 ML FLUSH IV FLUSH SCH ×2 (09:32→20:15)
[2017-07-12] MEDS: SODIUM CHLOR 0.9% 1000 ML INJ 1,000 ML IV SCH ×2 (09:35→23:28)
[2017-07-12 12:00] VITALS: BP 136/85; PULSE 65; RESP 18; TEMP 97.1; O2SAT 95
--- NOTE | 2017-07-12 15:28 | HHI.PR ---
Subjective Remarks awake and alert, interactive denies any pain, nausea or vomiting good po, no neck pain or headaches no diarrhea- c/o constipation- states he uses Miralax occasionally Objective Vitals Vital Signs Date Time Temp Pulse Resp B/P (MAP) Pulse Ox O2 Delivery O2 Flow Rate FiO2 07/12/17 12:00 97.1 65 18 136/85 (102) 95 07/12/17 08:00 96.5 65 18 131/74 (93) 99 07/12/17 05:52 96.7 63 17 121/68 (85) 98 07/11/17 23:41 97.1 68 17 135/87 (103) 99 07/11/17 21:54 Room Air 07/11/17 19:15 96.9 72 18 124/87 (99) 97 07/11/17 16:00 98.0 78 17 113/76 (88) 98 I/O 07/11/17 07/11/17 07/11/17 07/12/17 07/12/17 07/12/17 07:00 15:00 23:00 07:00 15:00 23:00 Intake Total 1300 ml 7227 ml 1360 ml 480 ml 2516 ml Output Total 875 ml 200 ml 600 ml 425 ml Balance 1300 ml 6352 ml 1160 ml -120 ml 2091 ml Intake Oral 300 ml 600 ml 360 ml 480 ml 600 ml IV Total 1000 ml 6627 ml 1000 ml 1916 ml Output Urine Total 875 ml 200 ml 600 ml 425 ml # Voids 4 2 3 1 # Bowel Movements 0 0 0 0 Result Diagram: 07/11/17 0610 07/12/17 0734 Imaging Last Impressions Lumbar Puncture Fluoroscopy 07/08/17 0000 Signed Impressions: Service Date/Time: Saturday, July 08, 2017 13:40 - CONCLUSION: Uncomplicated fluoroscopically guided lumbar puncture with pressures as above. Jd Noyola MD Neck Magnetic Resonance Angiography 07/07/17 0000 Signed Impressions: Service Date/Time: Friday, July 07, 2017 15:22 - CONCLUSION: 1. Mild circumferential stenosis of the distal right vertebral artery at the vertebrobasilar junction. This appears less prominent than on head MRA examination. Widely patent left vertebral artery. Overall, findings should not result in clinically significant vertebrobasilar insufficiency. 2. No significant carotid flow-limiting stenosis. Ajay Gr MD Head Magnetic Resonance Angiography 07/07/17 0000 Signed Impressions: Service Date/Time: Friday, July 07, 2017 15:22 - CONCLUSION: 1. 1.5 cm length mild to moderate diffuse circumferential narrowing of the distal right vertebral artery at the basilar junction. Otherwise, widely patent distal left and basilar arteries. Doubt that the degree of stenosis is sufficient to result in clinical vertebrobasilar insufficiency unless there is a hemodynamically significant proximal left vertebral artery stenosis. 2. Hypoplastic right A1 segment. Ajay Gr MD Chest X-Ray 07/07/17 0000 Signed Impressions: Service Date/Time: Friday, July 07, 2017 14:12 - CONCLUSION: Cardiomegaly. No acute pulmonary disease. No contraindication to MRI Kareem Viramontes MD Brain MRI 07/07/17 0000 Signed Impressions: Service Date/Time: Friday, July 07, 2017 15:22 - CONCLUSION: Moderate central and cortical atrophy of the supra-and infratentorial brain. No abnormal areas of enhancement. Chester Lilly MD Head CT 07/06/17 0000 Signed Impressions: Service Date/Time: Thursday, July 06, 2017 17:57 - CONCLUSION: 1. Senescent changes with minimally prominent ventricles. Recommend clinical correlation for normal pressure hydrocephalus. Ajay Gr MD Objective Remarks oriented to person and place and name, knows the president, interactive but very appropriate speech- mild stuttering- per patient baseline anicteric good gag pupils equal no nuchal rigidity lungs- clear regular rhythm abdomen soft, nontender extremities no edmea moves all equally- strength 5/5 gait - deferred Procedures 07/08/17 Lumbar puncture A/P Assessment and Plan 72 years old male Altered mental status- Improved - possible normal pressure hydrocephalus- patient now awake and alert, very interactive, speech stuttering but per patient baseline Possible Dementia starting a x ox 3 but takes a while to give answers "forgetful" S/P LP psychiatry consult -will he benefit from ? medications/recommendations Gait instability- PT daily. Motor exam normal. Hypertension: Continue amlodipine. BP well controlled. Anxiety: Continue home medications. DVT prophylaxis: SCDs/JAMIE hose. Recent dental infection. on Trimox . OP ff up with dentist- right lower molar Acute kidney injury: Likely secondary to medications. creatinine trending down- per patient voiding well good po. Heplock after current bag and monitor ff renal functions Discharge Planning Patient will need SNF/rehab. Plan discharge soon pending improvement of renal function. per patient lives in a mobile home Jay Vazquez MD Jul 12, 2017 15:28
[2017-07-12 16:00] VITALS: BP 127/77; PULSE 71; RESP 18; TEMP 96.8; O2SAT 98
[2017-07-12] MEDS ORDERED: POTASSIUM CHLORIDE 20 MEQ CONTROLLED RELEASE TAB PO ONE (16:00)
[2017-07-12 19:17] VITALS: BP 138/80; PULSE 80; RESP 18; TEMP 98.1; O2SAT 98
[2017-07-12 23:30] VITALS: BP 167/91; PULSE 84; RESP 18; TEMP 98; O2SAT 99
[2017-07-13 04:25] VITALS: BP 151/84; PULSE 83; RESP 18; TEMP 97.2; O2SAT 100
[2017-07-13] MEDS: AMOXICILLIN (TRIHYDRATE) 500 MG CAP PO SCH ×2 (05:05→15:26)
[2017-07-13 06:14] LABS: BICARBONATE 26.3 MEQ/L (21.0-32.0); CALCIUM 9.1 MG/DL (8.5-10.1); CREATININE 1.1 MG/DL (0.60-1.30)
[2017-07-13] MEDS: amLODIPine BESYLATE 5 MG TAB PO SCH (07:52)
[2017-07-13] MEDS: DOCUSATE SODIUM 50 MG/SENNA 8.6 MG TAB PO SCH (07:52)
[2017-07-13] MEDS: buPROPion HCL 100 MG SUSTAINED RELEASE TAB PO SCH (07:52)
[2017-07-13] MEDS: QUEtiapine FUMARATE 100 MG TAB PO SCH (07:52)
[2017-07-13] MEDS: POTASSIUM CHLOR 10 MEQ PREMIX 100 ML IV SCH ×3 (07:52→11:37)
[2017-07-13] MEDS: SODIUM CHLORIDE 0.9% FLUSH 10 ML FLUSH IV FLUSH SCH (07:54)
--- NOTE | 2017-07-13 07:54 | HHI.PR ---
Subjective Remarks awake and alert, interactive and childlike appears scared, "unsure" knows he is in the hospital I feel he is overwhelmed - because he is unfamiliar with his surroundings- needs to be oriented and reminded had a BM this am, voiding no dental pain or difficulty chewing Objective Vitals Vital Signs Date Time Temp Pulse Resp B/P (MAP) Pulse Ox O2 Delivery O2 Flow Rate FiO2 07/13/17 04:25 97.2 83 18 151/84 (106) 100 07/12/17 23:30 98.0 84 18 167/91 (116) 99 07/12/17 19:17 98.1 80 18 138/80 (99) 98 07/12/17 16:00 96.8 71 18 127/77 (94) 98 07/12/17 12:00 97.1 65 18 136/85 (102) 95 07/12/17 08:00 96.5 65 18 131/74 (93) 99 I/O 07/12/17 07/12/17 07/12/17 07/13/17 07/13/17 07/13/17 07:00 15:00 23:00 07:00 15:00 23:00 Intake Total 480 ml 2516 ml 720 ml 360 ml Output Total 600 ml 425 ml 400 ml 300 ml Balance -120 ml 2091 ml 320 ml 60 ml Intake Oral 480 ml 600 ml 720 ml 360 ml IV Total 1916 ml Output Urine Total 600 ml 425 ml 400 ml 300 ml # Voids 3 1 4 2 # Bowel Movements 0 0 1 1 Result Diagram: 07/11/17 0610 07/13/17 0438 Imaging Last Impressions Lumbar Puncture Fluoroscopy 07/08/17 0000 Signed Impressions: Service Date/Time: Saturday, July 08, 2017 13:40 - CONCLUSION: Uncomplicated fluoroscopically guided lumbar puncture with pressures as above. Jd Noyola MD Neck Magnetic Resonance Angiography 07/07/17 0000 Signed Impressions: Service Date/Time: Friday, July 07, 2017 15:22 - CONCLUSION: 1. Mild circumferential stenosis of the distal right vertebral artery at the vertebrobasilar junction. This appears less prominent than on head MRA examination. Widely patent left vertebral artery. Overall, findings should not result in clinically significant vertebrobasilar insufficiency. 2. No significant carotid flow-limiting stenosis. Ajay Gr MD Head Magnetic Resonance Angiography 07/07/17 0000 Signed Impressions: Service Date/Time: Friday, July 07, 2017 15:22 - CONCLUSION: 1. 1.5 cm length mild to moderate diffuse circumferential narrowing of the distal right vertebral artery at the basilar junction. Otherwise, widely patent distal left and basilar arteries. Doubt that the degree of stenosis is sufficient to result in clinical vertebrobasilar insufficiency unless there is a hemodynamically significant proximal left vertebral artery stenosis. 2. Hypoplastic right A1 segment. Ajay Gr MD Chest X-Ray 07/07/17 0000 Signed Impressions: Service Date/Time: Friday, July 07, 2017 14:12 - CONCLUSION: Cardiomegaly. No acute pulmonary disease. No contraindication to MRI Kareem Viramontes MD Brain MRI 07/07/17 0000 Signed Impressions: Service Date/Time: Friday, July 07, 2017 15:22 - CONCLUSION: Moderate central and cortical atrophy of the supra-and infratentorial brain. No abnormal areas of enhancement. Chester Lilly MD Head CT 07/06/17 0000 Signed Impressions: Service Date/Time: Thursday, July 06, 2017 17:57 - CONCLUSION: 1. Senescent changes with minimally prominent ventricles. Recommend clinical correlation for normal pressure hydrocephalus. Ajay Gr MD Objective Remarks oriented to person, knows the president, interactive but very appropriate speech- mild stuttering- per patient baseline anicteric oral mucosa moist, gums no swelling, dentures intact, no tenderness good gag pupils equal no nuchal rigidity lungs- clear regular rhythm abdomen soft, nontender extremities no edema moves all equally- strength 5/5 Procedures 07/08/17 Lumbar puncture A/P Assessment and Plan 72 years old male Altered mental status- Improved - patient now awake and alert, very interactive , speech stuttering but per patient baseline Possible Dementia starting interactive but takes a while to give answers "forgetful". S/P LP psychiatry consult -will he benefit from ? dementia medications/ recommendations Dr. Barkley ff along with us Acute kidney injury: Likely secondary to medications. creatinine trending down- per patient voiding good po- but needs to be reminded and offered drink and food needs to be supervised with all his po or else he may go into [facility] due to dehydration ff renal functions NO NSAIDs HYpokalemia- give IV KCL x 3 and po. recheck lab in am- at rehab KCL 10 meq po daily x 3 days Gait instability- PT daily. Motor exam normal. will need SNF Hypertension: Continue amlodipine. BP well controlled. Anxiety: Continue home medications. DVT prophylaxis: SCDs/JAMIE newton. Recent dental infection. - no complains of pain. on Trimox as OP till 07/14 then DC OP ff up with dentist- NO nSAIDs, Tylenol prn for pain if needed Discharge Planning Patient will need SNF/rehab.- CM consulted per patient lives in a mobile home Jay Vazquez MD Jul 13, 2017 07:54
[2017-07-13 08:00] VITALS: BP 134/80; PULSE 66; RESP 16; TEMP 96; O2SAT 100
[2017-07-13] MEDS: SODIUM CHLOR 0.9% 1000 ML INJ 1,000 ML IV SCH (08:02)
[2017-07-13] MEDS ORDERED: ACETAMINOPHEN 325 MG TAB PO PRN (09:00)
--- NOTE | 2017-07-13 11:49 | PD.PSY.CON ---
Provisional Diagnosis Admission Date Jul 10, 2017 at 16:31 [place] I. Dementia with behavioral disturbances, delirium [place] II. Deferred History of Present Illness Service Psychiatry Consult Requested By Medical team Reason for Consult Psychotic behavior Primary Care Physician Ahmet Doe MD HPI The patient is a 72-year-old man, domiciled in [place], he is , no kids, supported by shelter benefits, previous psychiatric history of depression, no anxiety, the patient is an Wellbutrin 100 mg twice a day, Seroquel 100 mg twice a day, denies previous psychiatric hospitalizations, denies suicidal attempts, past medical history of hypertension, DVT, present to the emergency department for evaluation of altered mental status and more frequent falls. The patient's neighbor reports that patient has been suffering from worsening confusion and forgetfulness. She also states he has a shuffling gait with urinary incontinence. Patient was admitted due to Altered mental status, possible normal pressure hydrocephalus: Appreciate neurology recommendations. MRI/MRA noted. Continue PT. Lumbar puncture done. Acyclovir IV started by neurology. HSV PCR negative. .Acute kidney injury: Likely secondary to medications. Acyclovir discontinued. Creatinine slightly improved today. Consulted to psychiatry due to agitation and disorganized behavior. Chart was reviewed. Case discussed with nursing charge. On psychiatric evaluation today the patient is found a little bit agitated, Disorganized, but Redirectable. The Patient Reports Feeling Okay, reports good mood, denies depressive symptoms, denies anhedonia, he denies suicidal and homicidal ideation , he denies visual and auditory hallucinations. The patient is oriented in person, place and partially oriented in time. He also her most of my questions , but he seems to be an unreliable historian. No prominent paranoia, loosening of hallucinations, aggressive behavior or agitation present at this moment. Review of Systems Constitutional: DENIES: Diaphoretic episodes, Fatigue, Fever, Weight gain, Weight loss, Chills, Dizziness, Change in appetite, Night Sweats Endocrine: DENIES: Heat/cold intolerance, Polydipsia, Polyuria, Polyphagia Eyes: DENIES: Blurred vision, Diplopia, Eye inflammation, Eye pain, Vision loss , Photosensitivity, Double Vision Ears, nose, mouth, throat: DENIES: Tinnitus, Hearing loss, Vertigo, Nasal discharge, Oral lesions, Throat pain, Hoarseness, Ear Pain, Running Nose, Epistaxis, Sinus Pain, Toothache, Odynophagia Respiratory: DENIES: Apneas, Cough, Snoring, Wheezing, Hemoptysis, Sputum production, Shortness of breath Cardiovascular: DENIES: Chest pain, Palpitations, Syncope, Dyspnea on Exertion , PND, Lower Extremity Edema, Orthopnea, Claudication Gastrointestinal: DENIES: Abdominal pain, Black stools, Bloody stools, Constipation, Diarrhea, Nausea, Vomiting, Difficulty Swallowing, Anorexia Genitourinary: DENIES: Sexual dysfunction, Urinary frequency, Urinary incontinence, Urgency, Hematuria, Dysuria, Nocturia, Penile Discharge, Testicular Pain, Testicular Swelling Musculoskeletal: DENIES: Joint pain, Muscle aches, Stiffness, Joint Swelling, Back pain, Neck pain Integumentary: DENIES: Abnormal pigmentation, Nail changes, Pruritus, Rash Hematologic/lymphatic: DENIES: Bruising, Lymphadenopathy Immunologic/allergic: DENIES: Eczema, Urticaria Neurologic: DENIES: Abnormal gait, Headache, Localized weakness, Paresthesias, Seizures, Speech Problems, Tremor, Poor Balance Psychiatric: DENIES: Anxiety, Confusion, Mood changes, Depression, Hallucinations, Agitation, Suicidal Ideation, Homicidal Ideation, Delusions Past Family Social History Coded Allergies: No Known Allergies (Unverified , 07/06/17) Reported Medications Polyethylene Glycol 3350 Powder (Miralax Powder) 17 Gm Powd, 17 GM PO DAILY for Constipation, #1 % 0 Refills Mix and dissolve one measuring cap-ful (17 grams) in water or juice. 07/11/17 Folic Acid (Folic Acid) 0.4 Mg Tab, 400 MCG PO DAILY for Nutritional Supplement , TAB 0 Refills 07/11/17 Multivit-Min/FA/Lycopen/Lutein (Men 50 Plus Multivitamin Tab) 300 Mcg-600 Mcg- 300 Mcg Tablet 07/11/17 Aspirin (Aspirin) 81 Mg Chew, 81 MG .XX DAILY, TAB 0 Refills 07/11/17 Quetiapine (Quetiapine) 100 Mg Tab, 100 MG PO HS, #1 TAB 0 Refills 07/11/17 Bupropion HCl ER 12 HR (Bupropion HCl ER 12 HR) 100 Mg Tab, 100 MG PO Q12HR for Control Depression, TAB 0 Refills 07/07/17 Bupropion ER 12 HR (Smoking Deterrent) (Bupropion Sr 12 HR) 150 Mg Tab, 100 MG PO BID, TAB Take 1 tablet daily x 3 days then twice daily thereafter. 07/07/17 Amoxicillin (Amoxicillin) 500 Mg Cap, 500 MG PO Q8HR for Infection, CAP 0 Refills 07/07/17 Hydrocodone-Acetaminophen (Hydrocodone-Acetaminophen) 7.5 Mg-325 Mg Tab, 1 TAB PO Q6H Y for PAIN, TAB 0 Refills 07/07/17 Amlodipine (Amlodipine) 2.5 Mg Tab, 2.5 MG PO DAILY for Blood Pressure Management, #30 TAB 0 Refills 07/07/17 Discontinued Reported Medications Quetiapine (Seroquel) 200 Mg Tab, 200 MG PO DAILY, #30 TAB 0 Refills 07/07/17 Current Medications Medications (Trade) Dose Ordered Sig/Crystal Route Start Time Stop Time Status Last Admin (NS Flush) 2 ml UNSCH PRN IV FLUSH 07/06/17 22:00 (NS Flush) 2 ml BID IV FLUSH 07/07/17 09:00 07/13/17 07:54 Sodium Chloride 1,000 ml @ 84 mls/hr [id number] IV 07/07/17 00:45 07/13/17 08:02 (Norvasc) 2.5 mg DAILY PO 07/08/17 09:00 07/13/17 07:52 (Trimox) 500 mg Q8HR PO 07/07/17 22:00 07/14/17 21:59 07/13/17 05:05 (Wellbutrin Sr 12 Hr) 100 mg Q12HR PO 07/07/17 21:00 07/13/17 07:52 (SEROquel) 100 mg BID PO 07/07/17 21:00 07/13/17 07:52 (Pill Splitter) 1 ea UNSCH PRN OTHER 07/07/17 17:45 (Thiamine Inj) 100 mg DAILY IM 07/08/17 10:30 07/12/17 09:31 (Melissa-Colace) 1 tab BID PO 07/08/17 20:00 07/13/17 07:52 (Milk Of Magnesia Liq) 30 ml Q12H PRN PO 07/08/17 17:45 (Senokot) 17.2 mg Q12H PRN PO 07/08/17 17:45 07/12/17 09:27 (Dulcolax Supp) 10 mg DAILY PRN RECTAL 07/08/17 17:45 (Zofran Inj) 4 mg Q8HR PRN IV PUSH 07/09/17 13:45 07/09/17 13:52 (Tylenol) 650 mg Q4H PRN PO 07/13/17 09:00 Family Psych History He denies family psychiatric history Social History Patient was born in [place], he lives alone in [place], he is , no kids, supported by shelter benefits Patient's Strengths (min. 2) Verbal Physical Exam Vital Signs Vital Signs Date Time Temp Pulse Resp B/P (MAP) Pulse Ox O2 Delivery O2 Flow Rate FiO2 07/13/17 08:00 96.0 66 16 134/80 (98) 100 07/11/17 21:54 Room Air I/O 07/13/17 07/13/17 07/14/17 08:00 16:00 00:00 Intake Total 360 ml Output Total 300 ml Balance 60 ml Lab Results Test 07/13/17 04:38 Blood Urea Nitrogen 22 MG/DL Creatinine 1.10 MG/DL Random Glucose 83 MG/DL Calcium Level 9.1 MG/DL Sodium Level 139 MEQ/L Potassium Level 3.1 MEQ/L Chloride Level 104 MEQ/L Carbon Dioxide Level 26.3 MEQ/L Anion Gap 9 MEQ/L Estimat Glomerular Filtration Rate 65 ML/MIN Date/Time Source Procedure Growth Status 07/08/17 14:38 Cerebral Spinal Fluid Lumbar Puncture Gram Stain - Final Complete 07/08/17 14:38 Cerebral Spinal Fluid Lumbar Puncture CSF Culture - Final NO GROWTH IN 72 HOURS Complete Mental Status Examination Appearance: Appropriate Consciousness: Alert Orientation: x4 Motor Activity: Normal gait Speech: Unremarkable Language: Adequate Fund of Knowledge: Adequate Attention and Concentration: Adequate Memory: Impaired Mood: Appropriate Affect: Appropriate Thought Process & Associations: Intact Thought Content: Appropriate Hallucination Type: None Delusion Type: None Suicidal Ideation: No Suicidal Plan: No Suicidal Intention: No Homicidal Ideation: No Homicidal Plan: No Homicidal Intention: No Insight: Adequate Judgment: Adequate Assessment & Plan Problem List: (1) Major neurocognitive disorder due to another medical condition with behavioral disturbance ICD Codes: F02.81 - Dementia in other diseases classified elsewhere with behavioral disturbance Assessment & Plan: On psychiatric evaluation today the patient presents calm, cooperative, but he has visible memory problems. The patient is oriented in person and place, disoriented in time. He seems to be a poorly reliable historian. But, he denies depressive symptoms, he denies anxiety, he denies joe and psychosis. He denies suicidal and homicidal ideation, he denies visual and auditory hallucinations. No agitation, no aggressive behavior, no prominent paranoia, no prominent loosening of associations are present. Patient current presentation seems to be consistent with dementia with superimposed delirium. Agree with Seroquel 100 mg twice a day, Wellbutrin 100 mg twice a day. For acute agitation Haldol 2 mg IM every 8 hours when necessary aggressive behavior and agitation. Patient does not meet criteria for involuntary psychiatric admission. Breath supportive psychotherapy and psychoeducation provided. Assessment & Plan Estimated LOS: Rowdy Duff MD Jul 13, 2017 11:49
[2017-07-13 12:00] VITALS: BP 125/76; PULSE 67; RESP 16; TEMP 97; O2SAT 94
--- NOTE | 2017-07-13 12:04 | HHI.PR ---
Neuropsych Cognitive Cognitive: Severe: Cognitive, Attention/Concentration, Confused/Orientation, Insight/Awareness, Judgement/Problem-Solving, Memory Psychosocial Psychosocial: Severe: Psychosocial, Family/Other Adjustment, Realistic Expectation, Unable to Asses: Self-Esteem/Confidence Progress Notes/Response to Tx Contents of Sessions: Adjustment, Level of Consciousness Time with Patient: 15 minutes Premorbid psychological status Premorbid Cognitive, Emotional and Behavioral Status: Unstable. The patient has been on a neurocognitive decline for some time. He has college years of education and is now retired. The patient has no prior psychiatric difficulties, as described above. Substance abuse history is unremarkable. Behavioral Reactions of Patient and Family/Support System: Deferred. The patient has no family present. Emotional/Behavioral Status of Patient and Family/Support System: Deferred. Pertinent issues, if appropriate to this patients clinical care, are described in detail above. Maximizing acute care outcome This patient will more likely than not require placement in a facility with increased structure. At this point in the recovery process, the patient does not have cognitive capacity as the patient is unable to understand a situation and its likely consequences, nor is he able to manipulate information rationally. Cognitive capacity will be assessed throughout the recovery process. Anticipated Problems Ongoing areas of concern will include behavioral impulsivity, lack of insight and judgment, which may not improve with time or treatment. Anticipated problems include a safe place for him to go to after his hospital stay, and he may require NH placement. Treatment Plan This clinician will continue to follow with you throughout the course of this patients acute care treatment, and I will be available to meet with the patient s family/support system to facilitate their understanding and the ongoing care of their family member. The goals of neuropsychological intervention shall be both educational and supportive to the family/support system as is deemed clinically appropriate. Impression This 72 year old man was admitted to [facility] with progressive neurocognitive decline over several months, exacerbating to a point where his neighbors contacted the authorities. From a neuropsychological testing standpoint, his cognition was too poor for formal testing. However, from a neurobehavioral standpoint, this patient clearly has neurocognitive impairments inconsistent with the normal aging process or the singular effects of emotional distress on cognition, and his decline is significantly below baseline expectations. He demonstrates jeri impairments of memory and learning, as well as complex problem solving. His insight, awareness and judgment are significantly compromised. Diagnostically, this pattern of performance is consistent with a Major Neurocognitive Disorder, possibly related to Alzheimer's although his pattern of neurological findings suggest a possible NPH component. Regardless, his neurocognitive impairment indicates that he lacks cognitive capacity at this point to make decisions as he is unable to appreciate a situation and its likely consequences, nor is he able to manipulate information rationally. He is an unsafe discharge to the home environment, and will more likely than not require a facility with increased structure going forward. This patient should no longer operate a motor vehicle. Finally, continued medical evaluation and treatment to find reversible causes for his neurocognitive decline is recommended. My opinion concerning rehabilitation is that first a cause must be found for his decline prior to initiating treatment. A barrier to his rehabilitation participation also is a lack of a discharge plan (he will need family to be there on site post rehab). Diagnosis: (1) Major neurocognitive disorder due to another medical condition with behavioral disturbance Progress Note Narrative Ongoing follow up of patient initially seen in ED. The patient remains confused , similar to his clinical presentation last week. Nothing additional to add at this time. I will follow. Oneil Barkley PhD Jul 13, 2017 12:04 pm
[2017-07-13] MEDS: THIAMINE HCL 200 MG/2 ML VIAL IM SCH (12:41)
[2017-07-13 16:00] VITALS: BP 129/73; PULSE 80; RESP 17; TEMP 97.1; O2SAT 95
[2017-07-13] MEDS ORDERED: AMOX500C PO (17:21)
--- NOTE | 2017-07-13 17:24 | HHI.DS ---
Discharge Summary Admission Date Jul 10, 2017 at 16:31 Discharge Date: Jul 13, 2017 Admitting Diagnosis neuro symptoms r/o normal pressur hydrocephalus (1) Encephalopathy ICD Code: G93.40 - Encephalopathy, unspecified Diagnosis: Principal (2) SEAN,hypokalemia Diagnosis: Principal Procedures 07/08/17 Lumbar puncture Brief History - From Admission 72-year-old gentleman with unknown past medical history presents to the emergency department for evaluation of ulcerative mental status and more frequent falls. The patient's neighbor reports that patient has been suffering from worsening confusion and forgetfulness. She also states he has a shuffling gait with urinary incontinence. The neighbor reports that the patient has had garbled speech today. During her interview, the patient does not know why he is in the emergency department. He is pleasantly confused. He knows he is in the state [facility] but does not know the city. He does not know the date or year. He does not know what medical problems he has but he can tell me that he takes multiple medications. The patient does report that he fell twice last night. Patient denies headache. He denies fever/chills. No chest pain or shortness of breath. No nausea/vomiting/diarrhea. CBC/BMP: 07/11/17 0610 07/13/17 1357 Significant Findings Laboratory Tests Test 07/11/17 06:10 07/12/17 07:34 07/13/17 04:38 07/13/17 13:57 Red Blood Count 3.92 MIL/MM3 (4.50-5.90) Hematocrit 37.3 % (39.0-51.0) Neutrophils (%) (Auto) 72.0 % (16.0-70.0) Monocytes (%) (Auto) 9.0 % (0.0-8.0) Blood Urea Nitrogen 26 MG/DL (7-18) 23 MG/DL (7-18) 22 MG/DL (7-18) Creatinine 2.15 MG/DL (0.60-1.30) 1.37 MG/DL (0.60-1.30) Chloride Level 109 MEQ/L (98-107) 109 MEQ/L (98-107) Estimat Glomerular Filtration Rate 30 ML/MIN (>89) 51 ML/MIN (>89) 65 ML/MIN (>89) Potassium Level 3.1 MEQ/L (3.5-5.1) 3.3 MEQ/L (3.5-5.1) Imaging Last Impressions Lumbar Puncture Fluoroscopy 07/08/17 0000 Signed Impressions: Service Date/Time: Saturday, July 08, 2017 13:40 - CONCLUSION: Uncomplicated fluoroscopically guided lumbar puncture with pressures as above. Jd Noyola MD Neck Magnetic Resonance Angiography 07/07/17 0000 Signed Impressions: Service Date/Time: Friday, July 07, 2017 15:22 - CONCLUSION: 1. Mild circumferential stenosis of the distal right vertebral artery at the vertebrobasilar junction. This appears less prominent than on head MRA examination. Widely patent left vertebral artery. Overall, findings should not result in clinically significant vertebrobasilar insufficiency. 2. No significant carotid flow-limiting stenosis. Ajay Gr MD Head Magnetic Resonance Angiography 07/07/17 0000 Signed Impressions: Service Date/Time: Friday, July 07, 2017 15:22 - CONCLUSION: 1. 1.5 cm length mild to moderate diffuse circumferential narrowing of the distal right vertebral artery at the basilar junction. Otherwise, widely patent distal left and basilar arteries. Doubt that the degree of stenosis is sufficient to result in clinical vertebrobasilar insufficiency unless there is a hemodynamically significant proximal left vertebral artery stenosis. 2. Hypoplastic right A1 segment. Ajay Gr MD Chest X-Ray 07/07/17 0000 Signed Impressions: Service Date/Time: Friday, July 07, 2017 14:12 - CONCLUSION: Cardiomegaly. No acute pulmonary disease. No contraindication to MRI Kareem Viramontes MD Brain MRI 07/07/17 0000 Signed Impressions: Service Date/Time: Friday, July 07, 2017 15:22 - CONCLUSION: Moderate central and cortical atrophy of the supra-and infratentorial brain. No abnormal areas of enhancement. Chester Lilly MD Head CT 07/06/17 0000 Signed Impressions: Service Date/Time: Thursday, July 06, 2017 17:57 - CONCLUSION: 1. Senescent changes with minimally prominent ventricles. Recommend clinical correlation for normal pressure hydrocephalus. Ajay Gr MD PE at Discharge oriented to person, knows the president, interactive but very appropriate speech- mild stuttering- per patient baseline anicteric oral mucosa moist, gums no swelling, dentures intact, no tenderness good gag pupils equal no nuchal rigidity lungs- clear regular rhythm abdomen soft, nontender extremities no edema moves all equally- strength 5/5 Pt update on day of discharge awake and alert, pleasant, ff commands, oriented to person and place patient will eat and drink if redirected and refocused needs to be encourage or else may go into dehydration thanks- he is delightful Hospital Course 72 years old male Altered mental status- Improved - patient now awake and alert, very interactive , speech stuttering but per patient baseline Possible Dementia starting interactive but takes a while to give answers "forgetful". S/P LP psychiatry consult -will he benefit from ? dementia medications/ recommendations Dr. Barkley ff along with us Acute kidney injury: Likely secondary to medications. creatinine trending down- per patient voiding good po- but needs to be reminded and offered drink and food needs to be supervised with all his po or else he may go into SEAN due to dehydration ff renal functions NO NSAIDs HYpokalemia- give IV KCL x 3 and po. recheck lab in am- at rehab KCL 10 meq po daily x 3 days Gait instability- PT daily. Motor exam normal. will need SNF Hypertension: Continue amlodipine. BP well controlled. Anxiety: Continue home medications. DVT prophylaxis: SCDs/JAMIE hose. Recent dental infection. - no complains of pain. on Trimox as OP till 07/14 then DC OP ff up with dentist- NO nSAIDs, Tylenol prn for pain if needed Pt Condition on Discharge: Stable Discharge Disposition: Discharge to SNF Discharge Time: > 30 minutes Discharge Instructions DIET: Follow Instructions for: As Tolerated, No Restrictions Speech Therapy-Diet Recommends: Regular Activities you can perform: Weight Bearing as Judie Activities to Avoid: Prolonged Standing, Strenuous Activity Other Activity Instructions: patient needs to be cued for eating/fluid encrouage and activitiies Follow up Referrals: PCP Follow-up - 07/15/17 [facility]/ with [facility] New Orders: BASIC METABOLIC PROF - 07/14/17 Continued Medications: Amlodipine (Amlodipine) 2.5 Mg Tab 2.5 MG PO DAILY for Blood Pressure Management, #30 TAB 0 Refills Amoxicillin (Amoxicillin) 500 Mg Cap 500 MG PO Q8HR for Infection, #4 CAP 0 Refills (This prescription has been renewed) Aspirin (Aspirin) 81 Mg Chew 81 MG .XX DAILY, TAB 0 Refills Bupropion HCl ER 12 HR (Bupropion HCl ER 12 HR) 100 Mg Tab 100 MG PO Q12HR for Control Depression, TAB 0 Refills Folic Acid (Folic Acid) 0.4 Mg Tab 400 MCG PO DAILY for Nutritional Supplement, TAB 0 Refills Multivit-Min/FA/Lycopen/Lutein (Men 50 Plus Multivitamin Tab) 300 Mcg-600 Mcg- 300 Mcg Tablet Quetiapine (Quetiapine) 100 Mg Tab 100 MG PO HS, #1 TAB 0 Refills Discontinued Medications: Hydrocodone-Acetaminophen (Hydrocodone-Acetaminophen) 7.5 Mg-325 Mg Tab 1 TAB PO Q6H PRN for PAIN, TAB 0 Refills Polyethylene Glycol 3350 Powder (Miralax Powder) 17 Gm Powd 17 GM PO DAILY for Constipation, #1 % 0 Refills Mix and dissolve one measuring cap-ful (17 grams) in water or juice. Jay Vazquez MD Jul 13, 2017 17:24
[2017-07-13] MEDS ORDERED: POTASSIUM CHLORIDE 10 MEQ CONTROLLED RELEASE TAB PO ONE ×2 (17:30→21:00)
== END 2017-07-13 17:49 | DRG 683 ==
LOC: NEPE 16:41 → NEDA 21:09 → NEPGCP 22:34 → OBSVTOIN 07-10 16:31 → N06B 07-10 23:01
PROVIDERS: ADMIT Internal Medicine; ATTEND Internal Medicine
PROC: 009U3ZX Drainage of Spinal Canal, Percutaneous Approach, Diagnostic (ICD-10-PCS; principal; 2017-07-08)
PROC: B01BZZZ Fluoroscopy of Spinal Cord (ICD-10-PCS; 2017-07-08)
DX: N17.9 Acute kidney failure, unspecified (principal); F02.81 Dementia in other diseases classified elsewhere, unspecified severity, with behavioral disturbance; G93.89 Other specified disorders of brain; E87.6 Hypokalemia; I10 Essential (primary) hypertension; F41.9 Anxiety disorder, unspecified; R32 Unspecified urinary incontinence; W19.XXXA Unspecified fall, initial encounter; R26.0 Ataxic gait; S02.5XXA Fracture of tooth (traumatic), initial encounter for closed fracture; R29.6 Repeated falls; K04.7 Periapical abscess without sinus; Z79.899 Other long term (current) drug therapy
CPT/HCPCS: 62270; 70450; 70544; 70548; 70553; 71045; 77003; 80048; 80053; 80307; 81001; 82607; 82945; 83735; 83873; 83880; 83921; 84132; 84157; 84425; 84443; 84484; 85025; 85610; 85652; 85730; 86140; 86403; 86592; 87070; 87205; 87498; 87529; 88108; 89051; 93005; 95819; 96361; 96365; 96366; 96372; 96375; 99285; A9579; C1755; G0378; G8987-GO; G8987-GP; G8988-GO; G8988-GP; G9168-GN; G9169-GN; G9170-GN; J0133; J2405; J3411; J3480; J7030